=== PATIENT | female | born 1940 | race Two or more races ===

== ENCOUNTER 2016-05-13 10:06 | Inpatient (IN) | payer OTHER, BC ==
[2016-05-13 10:24] VITALS: BMI 29.7
--- NOTE | 2016-05-13 11:14 | PDOC ---
History of Present Illness <Vincent Zheng - Last Filed: 05/13/16 18:47> - General History Source: Patient, Family Exam Limitations: No Limitations - History of Present Illness Initial Comments: 05/13/16 12:41 The patient is a 76 year old female with no significant past medical history, who presents to the emergency department for further evaluation of abdominal pain for 2 weeks. The patient notes that she was recently admitted to another hospital on 04/28/16 and diagnosed with diverticulitis. The patient notes that during her admission she received a CT scan, fluids and antibiotics. On Wednesdays the patient was diagnosed with colitis secondary to antibiotics and was prescribed Flagyl. The patient reports associated spotting, back pain, and indigestion. The patient notes that she was prescribed Percocet for pain but opted to take tylenol. The patient reports one episode of vomiting 10 hours ago after taking tylenol. She denies chest pain, shortness of breath, fever, or cough. <Vincenzo Renee - Last Filed: 05/13/16 18:55> - General Chief Complaint: Pain, Acute Stated Complaint: PCP SENT FOR ABD CT Time Seen by Provider: 05/13/16 11:07 Past History - Past Medical History Anemia: No Asthma: Yes Cancer: No Cardiac Disorders: No CVA: No COPD: No CHF: No Dementia: No Diabetes: No GI Disorders: No Disorders: No HTN: Yes Hypercholesterolemia: Yes Liver Disease: No Seizures: No Thyroid Disease: Yes - Surgical History Abdominal Surgery: Yes (LAPAROSCOPY,APPENDECTOMY) Appendectomy: Yes Cardiac Surgery: No Cholecystectomy: No Lung Surgery: No Neurologic Surgery: No - Psycho/Social/Smoking Cessation Hx Suicidal Ideation: No Smoking History: Never smoked Have you smoked in the past 12 months: No Hx Alcohol Use: No (rare) Drug/Substance Use Hx: No Substance Use Type: None Hx Substance Use Treatment: No <Vincent Zheng - Last Filed: 05/13/16 18:47> <Vincenzo Renee - Last Filed: 05/13/16 18:55> - Past Medical History Allergies/Adverse Reactions: Allergies Allergy/AdvReac Type Severity Reaction Status Date / Time codeine AdvReac "NAUSEA" Verified 05/13/16 10:19 Home Medications: Ambulatory Orders Albuterol Sulfate [Proventil HFA Inhaler -] 2 inh PO TID PRN 09/17/12 Budesonide/Formeterol Fumarate [SYMBICORT 160/4.5mcg -] 2 inh IH BID 09/17/12 Levothyroxine [Synthroid -] 25 mcg PO ASDIR 09/17/12 Loratadine [Claritin -] 10 mg PO HS 09/17/12 Montelukast Na [Singulair -] 10 mg PO HS 09/17/12 Multivitamin W-Minerals/Lutein [A Thru Z High Potency Caplet] 5 tab PO DAILY 01/18 Nasacort Aq Nasal [place] - 1 spray NS PRN PRN 09/17/12 Rosuvastatin Calcium [Crestor] 5 mg PO HS 09/17/12 Aspirin Coated [Ecotrin -] 81 mg PO DAILY 09/13/13 Ibuprofen [Advil -] 400 mg PO DAILY 09/13/13 Metoprolol Succinate [Toprol XL -] 25 mg PO HS 09/13/13 Olmesartan/Amlodipin/Hcthiazid [Tribenzor 40-10-12.5 mg Tablet] 1 each PO DAILY 09/13/13 Metronidazole [Flagyl -] 500 mg PO TID 05/13/16 Review of Systems - Review of Systems Able to Perform ROS?: Yes Comments:: 05/13/16 12:41 GENERAL/CONSTITUTIONAL: No fever or chills. No weakness. HEAD, EYES, EARS, NOSE AND THROAT: No change in vision. No ear pain or discharge. No sore throat. CARDIOVASCULAR: No chest pain or shortness of breath. RESPIRATORY: No cough, wheezing, or hemoptysis. GASTROINTESTINAL: Yes abdominal pain, vomiting, indigestion. No nausea, diarrhea or constipation. GENITOURINARY: No dysuria, frequency, or change in urination. MUSCULOSKELETAL: Yes back pain No joint or muscle swelling or pain. No neck or back pain. SKIN: No rash NEUROLOGIC: No headache, vertigo, loss of consciousness, or change in strength/ sensation. ENDOCRINE: No increased thirst. No abnormal weight change. HEMATOLOGIC/LYMPHATIC: No anemia, easy bleeding, or history of blood clots. ALLERGIC/IMMUNOLOGIC: No hives or skin allergy. <Vincenzo Renee - Last Filed: 05/13/16 18:55> *Physical Exam - Vital Signs Last Vital Signs Temp Pulse Resp BP Pulse Ox 98.1 F 86 19 150/64 96 05/13/16 10:19 05/13/16 10:19 05/13/16 10:19 05/13/16 10:19 05/13/16 10:19 <Vincent Zheng - Last Filed: 05/13/16 18:47> - Vital Signs Last Vital Signs Temp Pulse Resp BP Pulse Ox 98.1 F 86 19 150/64 96 05/13/16 10:19 05/13/16 10:19 05/13/16 10:19 05/13/16 10:19 05/13/16 10:19 - Physical Exam Comments: 05/13/16 12:42 GENERAL: Awake, alert, and fully oriented, in no acute distress HEAD: No signs of trauma EYES: PERRLA, EOMI, sclera anicteric, conjunctiva clear ENT: Auricles normal inspection, hearing grossly normal, nares patent, oropharynx clear without exudates. Moist mucosa NECK: Normal ROM, supple, no lymphadenopathy, JVD, or masses LUNGS: Breath sounds equal, clear to auscultation bilaterally. No wheezes, and no crackles HEART: Regular rate and rhythm, normal S1 and S2, no murmurs, rubs or gallops ABDOMEN: Soft, nontender, normoactive bowel sounds. No guarding, no rebound. No masses EXTREMITIES: Normal range of motion, no edema. No clubbing or cyanosis. No cords, erythema, or tenderness NEUROLOGICAL: Cranial nerves II through XII grossly intact. Normal speech, normal gait SKIN: Warm, Dry, normal turgor, no rashes or lesions noted. <Vincenzo Renee - Last Filed: 05/13/16 18:55> Heart Score/ECG Review - ECG Impressions Comment:: 05/13/16 13:18 ECG Impression: Normal sinus rhythm. Septal infarct, age undetermined. Abnormal ECG. <Vincenzo Renee - Last Filed: 05/13/16 18:55> ED Treatment Course - LABORATORY CBC & Chemistry Diagram: 05/13/16 12:48 05/13/16 12:48 <Vincent Zheng - Last Filed: 05/13/16 18:47> - LABORATORY CBC & Chemistry Diagram: 05/13/16 12:48 05/13/16 12:48 - RADIOLOGY Radiograph Interpretation: 05/13/16 16:01 EXAM#: TYPE/EXAM: RESULT: [id number] US/PELVIC / BLADDER US Clinical history: 76- year-old with postmenopausal vaginal bleeding. COMPARISON: None. Transverse and longitudinal cross-sections were obtained through the pelvis utilizing transabdominal technique. The uterus was prominent in size for postmenopausal status. It measured 8.2 x 6 0.4, 9.2 by cm. An anterior myoma measured 3.7 x 3.1 cm.. The EEC measured 4 mm. No fluid was noted in the endometrial cavity or the cul-de-sac. The ovaries could not be seen. A distended loop of fluid-filled bowel was seen in the pelvis. Impression: Enlarged postmenopausal uterus with anterior myoma. Normal EEC. Ovaries not seen. Reported By: Kahlil Dorsey MD [id number] 05/13/16 17:41 EXAM#: TYPE/EXAM: RESULT: [id number] CT/ABDOMEN PELVIS CT WITH CONTR Recent diverticulitis. CT scan of the abdomen and pelvis following oral and intravenous contrast. Coronal and sagittal reformatted images were obtained 94 cc of Omnipaque 350 was intravenously injected Comparison: None available There is linear-like scarring in the included lung base, posteriorly/bilaterally. The heart is within normal limits in size. Evaluation of the liver, spleen, pancreas and both adrenal glands appear unremarkable. Status post cholecystectomy. Mild dilatation of the central intrahepatic bile ducts with a normal size: Bile duct. The stomach is moderately distended without wall thickening. Both kidneys are within normal limits in size with normal enhancement. 1.2 cm right mid renal cyst. There is also a tiny cyst in its upper pole and a small cyst in its lower pole. Questionable punctate nonobstructing stone in its lower pole measuring 1 to 2 mm on axial image 59. Subcentimeter cyst in the left renal lower pole. There is [id number]-pt-[id number] right and mild left renal hydronephrosis as well as mild to moderate right hydroureter without evidence of a ureteral stone. Urinary bladder is moderately distended with minimal intraluminal air, probably iatrogenic. There are multiple diverticula in the sigmoid colon with thickening of the mid sigmoid colon wall and stranding of the surrounding fat. There is multiloculated collections with air seen along the right lateral margin of the mid sigmoid colon draping over the uterine fundus with the largest collection measuring approximately 6 cm. The collections are extending to the upper pelvis with thickening of the adjacent small bowel loops at the junction of the distal duodenum and proximal jejunal loops. There is suggestion of a small abscess with air-fluid level inseparable from the third portion of the duodenum measuring 2.4 cm on axial image 71. There is also mild dilatation and deformity seen at the junction of the duodenal bulb and descending duodenum, cannot rule out a small ulcer. Normal size uterus with multiple small calcific densities suggestive of calcified fibroids. Perirectal fat is clear. Grade 1 anterolisthesis of L5 over S1. Moderate degenerative disc disease from L1 through S1 level. Impression: Findings consistent with diverticulitis involving the mid sigmoid colon with multiloculated adjacent abscess in the mid pelvis draping over the uterine fundus as well as extending superiorly with likely another small loculated abscess seen at the junction of the third and fourth portion of the duodenum measuring 2.4 cm. There is thickening of the third and fourth portion of the duodenum as well as the adjacent proximal jejunal loops. Questionable small duodenal ulcer in the proximal descending portion. Status post cholecystectomy. Air within the urinary bladder, likely iatrogenic. Reported By: Osmany Paez MD 05/13/16 5397 EXAM#: TYPE/EXAM: RESULT: [id number] RAD/CHEST PA LAT Abdominal pain and distention Chest x-ray PA and lateral. The cardiac silhouette is within normal limits in size. There are mild perihilar increased lung markings, bilaterally. Minimal blunting of the left costophrenic angle consistent with pleural thickening versus minimal pleural effusion. Mediastinum and visualized osseous structures appear intact with degenerative changes and anterior spondylosis in the thoracic spine. Impression: No acute cardiopulmonary disease is present. Pleural thickening versus minimal left pleural effusion. Reported By: Osmany Paez MD 05/13/16 1815 <Vincenzo Renee - Last Filed: 05/13/16 18:55> Medical Decision Making - Medical Decision Making 05/13/16 18:45 Dr. Drummond was called and case was discussed. Dr. Drummond said that he would speak with Dr. Oviedo directly. <Vincenzo Renee - Last Filed: 05/13/16 18:55> *DC/Admit/Observation/Transfer - Discharge Dispostion Admit: Yes - Attestations Physician Attestion: 05/13/16 11:13 I, Dr. Vincent Zheng, attest that this document has been prepared under my direction and personally reviewed by me in its entirety. I further attest, that it accurately reflects all work, treatment, procedures and medical decision -making performed by me. <Vincent Zheng - Last Filed: 05/13/16 18:47> - Attestations Scribe Attestion: 05/13/16 12:42 Documentation prepared by Vincenzo Renee, acting as medical billing associate for Vincent Zheng DO. <Vincenzo Renee - Last Filed: 05/13/16 18:55> Diagnosis at time of Disposition: Intra-abdominal abscess Diverticulitis Qualifiers: Diverticulitis site: large intestine Diverticulitis bleeding: without bleeding Diverticulitis complication: with abscess Qualified Code(s): K57.20 - Diverticulitis of large intestine with perforation and abscess without bleeding - Referrals Referrals: Alonso Drummond MD [Primary Care Provider] -
[2016-05-13 14:00] LABS: BASOPHIL 0.5 % (0-2.0); EOSINOPHIL 0.1 % (0-4.5); MCH 29.7 pg (25.7-33.7); MCHC 33.7 g/dl (32.0-36.0); MEAN CELL VOLUME 87.9 fl (80-96); MEAN PLT VOLUME 7.1 fl (7.5-11.1); NEUTROPHILS 83.1 % (42.8-82.8); PLATELET COUNT 851 K/MM3 (134-434); RDW 15.5 % (11.6-15.6); WHITE BLOOD COUNT 16.4 K/mm3 (4.0-10.0)
[2016-05-13 14:11] LABS: INR 1.22 (0.82-1.09); PROTHROMBIN TIME (PATIENT) 13.5 SEC (9.98-11.88)
[2016-05-13 14:39] LABS: ALBUMIN 2.6 g/dl (3.4-5.0); ANION GAP 10 (8-16); CO2 27 mmol/L (21-32); GLUCOSE,RANDOM 94 mg/dL (74-106); SGPT/ALT 23 U/L (12-78); TOT PROT 6.6 g/dl (6.4-8.2)
[2016-05-13 14:43] LABS: ALK PHOS 70 U/L (45-117); BILIRUBIN,TOTAL 0.5 mg/dL (0.2-1.0); C-REACTIVE PROTEIN 9.9 MG/DL (0.00-0.3); CREATININE 0.6 mg/dL (0.55-1.02)
[2016-05-13 14:56] LABS: BILIRUBIN,DIRECT < 0.1 mg/dL (0.0-0.2); SGOT/AST 48 U/L (15-37)
[2016-05-13 15:44] LABS: ERYTHROCYTE SEDIMENTATION RATE 50 mm/hr (0-30)
[2016-05-13 16:01] LABS: URINE APPEARANCE CLEAR; URINE BILIRUBIN NEGATIVE (NEGATIVE); URINE COLOR YELLOW; URINE GLUCOSE (UA) NEGATIVE (NEGATIVE); URINE KETONE TRACE (NEGATIVE); URINE LEUK ESTERASE NEGATIVE (NEGATIVE); URINE NITRITE NEGATIVE (NEGATIVE); URINE PROTEIN NEGATIVE (NEGATIVE); URINE UROBILINOGEN NEGATIVE E.U./dl (0.2-1.0)
[2016-05-13 16:02] LABS: URINE BLOOD 1+ (NEGATIVE); URINE MUCUS RARE; URINE RBC 5 /hpf (0-3); URINE WBC 1 /hpf (3-5)
[2016-05-13] MEDS ORDERED: VANCOMYCIN 1,000 MG in DEXTROSE 5%-WATER - 250 ML IVPB ONE (19:13)
[2016-05-13] MEDS ORDERED: VANCOMYCIN 1 GRAM (PRE-DOCKED) 250 ML IVPB ONE (19:41)
[2016-05-13] MEDS ORDERED: NASACORT AQ NS PRN (20:37)
[2016-05-13] MEDS ORDERED: PIPERACILLIN/TAZOB 3.375 GM/50 ML PRE-DOCKED IV ONE (20:39)
[2016-05-13] MEDS ORDERED: PIPERACILLIN/TAZOB 3.375 GM/50 ML PRE-DOCKED IVPB ONE (20:39)
[2016-05-13] MEDS ORDERED: ACETAMINOPHEN 1000 MG/100 ML VIAL (NON FORMULARY) IVPB PRN (20:41)
[2016-05-13] MEDS ORDERED: ROSUVASTATIN CA 5 MG TABLET (FP) PO SCH (22:00)
[2016-05-13] MEDS: LORATADINE 10 MG TABLET PO SCH (23:11)
[2016-05-13] MEDS: BUDESONIDE/FORMETEROL FUMARATE 160/4.5 mcg INHALER IH SCH (23:12)
[2016-05-13] MEDS: MONTELUKAST NA 10 MG TABLET PO SCH (23:13)
[2016-05-13] MEDS: METOPROLOL SUCCINATE 25 MG TAB.SR.24H (FP) PO SCH (23:13)
--- NOTE | 2016-05-14 09:07 | PN ---
Progress Note, Physician Chief Complaint: ID In good spirits mimimal to no pain - Current Medication List Current Medications: Active Medications Acetaminophen (Ofirmev Injection -) 1,000 mg IVPB Q6H PRN PRN Reason: FEVER OR PAIN Stop: 05/14/16 14:42 Amlodipine Besylate (Norvasc -) 10 mg PO DAILY [facility] Budesonide/Formoterol Fumarate (Symbicort 160/4.5mcg -) 2 puff IH BID [facility] Last Admin: 05/13/16 23:12 Dose: Not Given Hydrochlorothiazide (Hctz -) 12.5 mg PO DAILY [facility] Loratadine (Claritin -) 10 mg PO [facility] Last Admin: 05/13/16 23:11 Dose: Not Given Metoprolol Succinate (Toprol Xl -) 25 mg PO [facility] Last Admin: 05/13/16 23:13 Dose: 25 mg Montelukast Sodium (Singulair -) 10 mg PO [facility] Last Admin: 05/13/16 23:13 Dose: 10 mg Non-Formulary Medication (Multivitamin W-Minerals/Lutein [A Thru Z High Potency Caplet]) 5 tab PO DAILY [facility] Non-Formulary Medication (Nasacort Aq Nasal [place] -) 1 spray NS PRN PRN PRN Reason: ASTHMA Rosuvastatin Calcium (Crestor -) 5 mg PO [facility] Last Admin: 05/13/16 23:11 Dose: Not Given Valsartan (Diovan -) 320 mg PO DAILY [facility] - Objective Vital Signs: Vital Signs Temperature 98.2 F 05/14/16 06:00 Pulse Rate 82 05/14/16 06:00 Respiratory Rate 18 05/14/16 06:00 Blood Pressure 134/67 05/14/16 06:00 O2 Sat by Pulse Oximetry (%) 98 05/13/16 22:00 Constitutional: Yes: Well Nourished, No Distress Neck: Yes: WNL, Supple Cardiovascular: Yes: S1, S2 Respiratory: Yes: WNL, Regular, CTA Bilaterally Gastrointestinal: Yes: WNL, Normal Bowel Sounds, Soft. No: Tenderness, Tenderness, Rebound Edema: No Labs: INR, PTT INR 1.22 (0.82-1.09) H 05/13/16 12:48 Problem List - Problems (1) Diverticulitis Code(s): K57.92 - DVTRCLI OF INTEST, PART UNSP, W/O PERF OR ABSCESS W/O BLEED Qualifiers: Diverticulitis site: large intestine Diverticulitis bleeding: without bleeding Diverticulitis complication: with abscess Qualified Code(s): K57.20 - Diverticulitis of large intestine with perforation and abscess without bleeding (2) Intra-abdominal abscess Code(s): K65.1 - PERITONEAL ABSCESS Assessment/Plan Microbiology Laboratory Tests 05/13/16 05/13/16 12:48 12:48 WBC 16.4 H Hgb 12.1 Plt Count 851 H ESR 50 H C-Reactive Protein 9.9 H Assessment Sigmoid diverticulitis with multiple abscess Plan Zosyn with GI consult ? NACHO Barnhart MD
--- NOTE | 2016-05-14 09:34 | CONS ---
DATE OF CONSULTATION: HISTORY: This is a 76-year-old female who was admitted with a [id number]-ymcygyc of lower abdominal pain. She notes being admitted to the [facility] on May 02 where she was diagnosed with acute diverticulitis. She says that she spent a day in the emergency room and 1 other day in the hospital before being discharged on Augmentin on the 30 of April. She took the Augmentin for approximately another week noting that her abdominal pain had improved somewhat. She was seen by Dr. Drummond earlier this week and referred to the hospital for ongoing evaluation of her diverticulitis. A CT scan obtained here showed findings consistent with mid sigmoid colon diverticulitis with multiloculated adjacent abscesses in the mid pelvis. The possibility of a small duodenal ulcer was mentioned, and she had prior cholecystectomy. The patient has no fever but an elevated white count on admission of 16,000. She notes that she has jxulbzz-tn-tl abdominal pain currently. She describes some loose stools but no diarrhea. PAST MEDICAL HISTORY: Includes thyroid disease, prior appendectomy, cholecystectomy, hyperlipidemia. MEDICATIONS: Albuterol, Symbicort, Singulair, Nasacort, Crestor, Ecotrin, metoprolol, ibuprofen. ALLERGIES: CODEINE. SOCIAL HISTORY: Never smoked. No history of alcohol use. Lives locally. FAMILY HISTORY: Reviewed and noncontributory. REVIEW OF SYSTEMS: Respiratory: No cough or shortness of breath. Cardiac: No chest pain or palpitations. Gastrointestinal: Currently lggmfoo-wy-if abdominal pain. No vomiting. Some loose stools but no diarrhea, blood per rectum, or hemoptysis. Genitourinary: No dysuria or hematuria. PHYSICAL EXAMINATION: General: A pleasant, well-nourished, elderly woman in no acute distress. Vital Signs: Temperature on admission 98.1, pulse 86, blood pressure 150/64, respirations 19. Neck: Supple. No adenopathy. Lungs: Clear to P and A. Heart: S1, S2. Regular rhythm without audible murmur or gallop. Abdomen: Soft, nontender with no guarding or rebound. No palpable mass. Extremities: No clubbing, cyanosis, or edema. LABORATORY DATA: White count 16.4, hemoglobin 12.1, platelets 851, sedimentation rate 51, BUN 9, creatinine 0.6. Liver enzymes within normal limits. CRP 9.9. Urinalysis: 5 RBC, 1 WBC. ASSESSMENT: A 76-year-old female with acute diverticulitis status post brief admission at [facility] who presents now with CT findings consistent with perforated diverticulitis with multiple abscesses. Clinically she appears quite well, however, despite the leukocytosis and thrombocytosis. The latter most likely reactive on the basis of intra-abdominal abscess. We will empirically treat her with piperacillin 4.5 g q.8 hours. Await GI consultation. Consider making the patient n.p.o. at this point HERI CABRERA M.D. [id number]
[2016-05-14] MEDS: HYDROCHLOROTHIAZIDE 12.5 MG CAPSULE (FP) PO SCH (09:51)
[2016-05-14] MEDS: amLODIPine BESYLATE 10 MG TABLET (FP) PO SCH ×2 (09:51→10:10)
[2016-05-14] MEDS: VALSARTAN 160 MG TABLET (UD) PO SCH (09:51)
[2016-05-14] MEDS ORDERED: PIPERACILLIN/TAZOB 4.5 GM 4.5 GM in DEXTROSE 5%-WATER - 100 ML IVPB SCH (10:00)
--- NOTE | 2016-05-14 10:22 | HP ---
Admitting History and Physical - Primary Care Physician PCP: Alonso Drummond - Admission Chief Complaint: DIVERTICULITIS. ABSCESS History Source: Medical Record - Smoking History Smoking history: Never smoked Have you smoked in the past 12 months: No - Alcohol/Substance Use Hx Alcohol Use: No (rare) Home Medications - Allergies Allergies/Adverse Reactions: Allergies Allergy/AdvReac Type Severity Reaction Status Date / Time codeine AdvReac "NAUSEA" Verified 05/13/16 10:19 - Home Medications Home Medications: Ambulatory Orders Albuterol Sulfate [Proventil HFA Inhaler -] 2 inh PO TID PRN 09/17/12 Budesonide/Formeterol Fumarate [SYMBICORT 160/4.5mcg -] 2 inh IH BID 09/17/12 Levothyroxine [Synthroid -] 25 mcg PO ASDIR 09/17/12 Loratadine [Claritin -] 10 mg PO HS 09/17/12 Montelukast Na [Singulair -] 10 mg PO HS 09/17/12 Multivitamin W-Minerals/Lutein [A Thru Z High Potency Caplet] 5 tab PO DAILY 01/18 Nasacort Aq Nasal [place] - 1 spray NS PRN PRN 09/17/12 Rosuvastatin Calcium [Crestor] 5 mg PO HS 09/17/12 Aspirin Coated [Ecotrin -] 81 mg PO DAILY 09/13/13 Ibuprofen [Advil -] 400 mg PO DAILY 09/13/13 Metoprolol Succinate [Toprol XL -] 25 mg PO HS 09/13/13 Metronidazole [Flagyl -] 500 mg PO TID 05/13/16 Tribenzor 40-5-12.5 mg Tablet PO DAILY 05/14/16 Review of Systems - Review of Systems Constitutional: denies: Chills, Fever Cardiovascular: denies: Chest Pain Respiratory: denies: SOB Gastrointestinal: reports: Abdominal Pain (feels better) Physical Examination Vital Signs: Vital Signs Temperature 98.2 F 05/14/16 06:00 Pulse Rate 82 05/14/16 06:00 Respiratory Rate 18 05/14/16 06:00 Blood Pressure 134/67 05/14/16 06:00 O2 Sat by Pulse Oximetry (%) 98 05/13/16 22:00 Constitutional: Yes: Calm Neck: Yes: WNL Cardiovascular: Yes: WNL Respiratory: Yes: WNL Gastrointestinal: Yes: Tenderness, Tenderness, Rebound (mild) Imaging - Results Cat Scan: Report Reviewed Ultrasound: Report Reviewed Problem List - Problems (1) Diverticulitis Code(s): K57.92 - DVTRCLI OF INTEST, PART UNSP, W/O PERF OR ABSCESS W/O BLEED Qualifiers: Diverticulitis site: large intestine Diverticulitis bleeding: without bleeding Diverticulitis complication: with abscess Qualified Code(s): K57.20 - Diverticulitis of large intestine with perforation and abscess without bleeding (2) Intra-abdominal abscess Code(s): K65.1 - PERITONEAL ABSCESS (3) Enlarged uterus Code(s): N85.2 - HYPERTROPHY OF UTERUS Assessment/Plan The patient is a 76 year old female with no significant past medical history, who presents to the emergency department for further evaluation of abdominal pain for 2 weeks. The patient notes that she was recently admitted to another hospital on 04/28/16 and diagnosed with diverticulitis. The patient notes that during her admission she received a CT scan, fluids and antibiotics. On Wednesdays the patient was diagnosed with colitis secondary to antibiotics and was prescribed Flagyl. The patient reports associated spotting, back pain, and indigestion. The patient notes that she was prescribed Percocet for pain but opted to take tylenol. The patient reports one episode of vomiting 10 hours ago after taking tylenol. She denies chest pain, shortness of breath, fever, or cough. 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
--- NOTE | 2016-05-14 11:14 | CONSULT ---
- Consultation REQUESTING PROVIDER: Jasmin CONSULT REQUEST: We have been asked to surgically evaluate this patient for diverticulitis w/microperforataion and abscess PCP:Leah Castellanos HISTORY OF PRESENT ILLNESS:Patient was txed for 5 days w/ IVABS after she presented to [place] in [facility]; she was d/c'ed w/ PO antibiotics; she saw here PCP (Bhanu) earlier this week who sent her to the ER here for further evaluation and management b/o concerns of intraabdominal sequelae of her original presenting problem; she has no c/o today of n/v and or abdominal pain; she has eaten while she has been here w/incident PMHx: HTN; pulm disease PSHx: open appendectomy/lap angelica Home Medications Medication Instructions Recorded Albuterol Sulfate [Proventil HFA 2 inh PO TID PRN 09/17/12 Inhaler -] Budesonide/Formeterol Fumarate 2 inh IH BID 09/17/12 [SYMBICORT 160/4.5mcg -] Levothyroxine [Synthroid -] 25 mcg PO ASDIR 09/17/12 Loratadine [Claritin -] 10 mg PO HS 09/17/12 Montelukast Na [Singulair -] 10 mg PO HS 09/17/12 Multivitamin W-Minerals/Lutein [A 5 tab PO DAILY 09/17/12 Thru Z High Potency Caplet] Nasacort Aq Nasal [place] - 1 spray NS PRN PRN 09/17/12 Rosuvastatin Calcium [Crestor] 5 mg PO HS 09/17/12 Aspirin Coated [Ecotrin -] 81 mg PO DAILY 09/13/13 Ibuprofen [Advil -] 400 mg PO DAILY 09/13/13 Metoprolol Succinate [Toprol XL -] 25 mg PO HS 09/13/13 Metronidazole [Flagyl -] 500 mg PO TID 05/13/16 Tribenzor 40-5-12.5 mg Tablet PO DAILY 05/14/16 Allergies Allergy/AdvReac Type Severity Reaction Status Date / Time codeine AdvReac "NAUSEA" Verified 05/13/16 10:19 PHYSICAL EXAM: GENERAL: Awake, alert, and fully oriented, in no acute distress. HEAD: Normal with no signs of trauma. EYES: anicteric NECK: Normal ROM, supple without lymphadenopathy, JVD, or masses. ABDOMEN: Soft, nontender, not distended, normoactive bowel sounds, no guarding, no rebound, no masses. No organomegaly. Healed right paramedian scar and healed port sites from lap angelica; no hernias MUSCULOSKELETAL: Normal ROM at all joints. No bony deformities or tenderness. No CVA tenderness. UPPER EXTREMITIES: 2+ pulses, warm, well-perfused. No cyanosis. Cap refill <2 seconds. No peripheral edema. LOWER EXTREMITIES: 2+ pulses, warm, well-perfused. No calf tenderness. No peripheral edema. NEUROLOGICAL: Normal speech, gait not observed. PSYCH: Cooperative. Good eye contact. Appropriate mood and affect. SKIN: Warm, dry, normal turgor, no rashes or lesions noted. Vital Signs Temperature 98.2 F 05/14/16 06:00 Pulse Rate 82 05/14/16 06:00 Respiratory Rate 18 05/14/16 06:00 Blood Pressure 134/67 05/14/16 06:00 O2 Sat by Pulse Oximetry (%) 98 05/13/16 22:00 Lab Results WBC 16.4 K/mm3 (4.0-10.0) H 05/13/16 12:48 RBC 4.09 M/mm3 (3.60-5.2) 05/13/16 12:48 Hgb 12.1 GM/dL (10.7-15.3) 05/13/16 12:48 Hct 35.9 % (32.4-45.2) 05/13/16 12:48 MCV 87.9 fl (80-96) 05/13/16 12:48 MCHC 33.7 g/dl (32.0-36.0) 05/13/16 12:48 RDW 15.5 % (11.6-15.6) 05/13/16 12:48 Plt Count 851 K/MM3 (134-434) H 05/13/16 12:48 Sodium 137 mmol/L (136-145) 05/13/16 12:48 Potassium 4.7 mmol/L (3.5-5.1) 05/13/16 12:48 Chloride 100 mmol/L (98-107) 05/13/16 12:48 Carbon Dioxide 27 mmol/L (21-32) 05/13/16 12:48 Anion Gap 10 (8-16) 05/13/16 12:48 BUN 9 mg/dL (7-18) 05/13/16 12:48 Creatinine 0.6 mg/dL (0.55-1.02) 05/13/16 12:48 Random Glucose 94 mg/dL (74-106) 05/13/16 12:48 Calcium 8.0 mg/dL (8.5-10.1) L 05/13/16 12:48 Blood Type A POSITIVE 05/13/16 16:02 Antibody Screen Negative 05/13/16 16:02 INR 1.22 (0.82-1.09) H 05/13/16 12:48 CT scan a/p-reviewed IMP: diverticulitis w/microperforation and intra abdominal abscess(es) PLAN: Suggest NPO/IVABS/IVFevaluation for CT guided abscess drainage; no acute surgical intervention indicated at this time; will f/u Ricardo Angulo MD [facility] Visit type - Case Type Case Type: ED Admission - Emergency Emergency Visit: Yes ED Registration Date: 05/13/16 Care time: The patient presented to the Emergency Department on the above date and was hospitalized for further evaluation of their emergent condition. - New patient This patient is new to me today: Yes Date on this admission: 05/14/16 - Critical Care Critical Care patient: No
[2016-05-14] MEDS: BUDESONIDE/FORMETEROL FUMARATE 160/4.5 mcg INHALER IH SCH ×2 (12:42→21:10)
[2016-05-14] MEDS: DEXTROSE 5%-0.45% SALINE 1,000 ML IV SCH ×2 (12:43→19:41)
[2016-05-14] MEDS: PIPERACILLIN/TAZOB 4.5 GM 100 ML IVPB SCH ×2 (12:43→17:30)
[2016-05-14] MEDS: amLODIPine BESYLATE 5 MG TABLET (FP) PO SCH (13:09)
--- NOTE | 2016-05-14 13:17 | CON.PULM ---
Consult Consult Specialty:: PULMONARY Referred by:: AFSHIN Reason for Consultation:: PLEURAL THICKENING - History of Present Illness Chief Complaint: ABD FULLNESS History of Present Illness: The patient is a 76 year old female who presents to the emergency department for further evaluation of abdominal pain for 2 weeks. The patient notes that she was recently admitted to another hospital on 04/28/16 and diagnosed with diverticulitis. The patient notes that during her admission she received a CT scan, fluids and antibiotics. On Wednesdays the patient was diagnosed with colitis secondary to antibiotics and was prescribed Flagyl. The patient reports associated spotting, back pain, and indigestion. The patient notes that she was prescribed Percocet for pain but opted to take tylenol. The patient reports one episode of vomiting 10 hours ago after taking tylenol. She denies chest pain, shortness of breath, fever, or cough. 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 No: AFIB Pulmonary: No: Asthma, COPD, Pneumonia Gastrointestinal: Yes: Diverticulitis, Other (ABD ABSCESS). No: Ascites Hepatobiliary: No: Cirrhosis Renal/: No: Renal Failure Reproductive: Yes: Postmenopausal Heme/Onc: No: Anemia Infectious Disease: No: AIDS Psych: No: Addictions Musculoskeletal: No: Bursitis Rheumatology: No: Fibromyalgia ENT: No: Allergic Rhinitis Endocrine: Yes: Hypothyroidism. No: Diabetes Mellitus - Past Surgical History Past Surgical History: Yes: Appendectomy, Cholecystectomy - Alcohol/Substance Use Hx Alcohol Use: No (rare) - Smoking History Smoking history: Never smoked Have you smoked in the past 12 months: No Home Medications - Allergies Allergies/Adverse Reactions: Allergies Allergy/AdvReac Type Severity Reaction Status Date / Time codeine AdvReac "NAUSEA" Verified 05/13/16 10:19 - Home Medications Home Medications: Ambulatory Orders Albuterol Sulfate [Proventil HFA Inhaler -] 2 inh PO TID PRN 09/17/12 Budesonide/Formeterol Fumarate [SYMBICORT 160/4.5mcg -] 2 inh IH BID 09/17/12 Levothyroxine [Synthroid -] 25 mcg PO ASDIR 09/17/12 Loratadine [Claritin -] 10 mg PO HS 09/17/12 Montelukast Na [Singulair -] 10 mg PO HS 09/17/12 Multivitamin W-Minerals/Lutein [A Thru Z High Potency Caplet] 5 tab PO DAILY 01/18 Nasacort Aq Nasal [place] - 1 spray NS PRN PRN 09/17/12 Rosuvastatin Calcium [Crestor] 5 mg PO HS 09/17/12 Aspirin Coated [Ecotrin -] 81 mg PO DAILY 09/13/13 Ibuprofen [Advil -] 400 mg PO DAILY 09/13/13 Metoprolol Succinate [Toprol XL -] 25 mg PO HS 09/13/13 Metronidazole [Flagyl -] 500 mg PO TID 05/13/16 Tribenzor 40-5-12.5 mg Tablet PO DAILY 05/14/16 Family Disease History - Family Disease History Family History: Unremarkable Review of Systems - Review of Systems Cardiovascular: denies: Chest Pain Respiratory: denies: Cough, Exercise Intolerance, Hemoptysis, SOB, Wheezing Gastrointestinal: reports: Bloating. denies: Abdominal Pain Physical Exam Vital Sings: Vital Signs Temperature 98.3 F 05/14/16 08:00 Pulse Rate 87 05/14/16 08:00 Respiratory Rate 20 05/14/16 08:00 Blood Pressure 137/61 05/14/16 08:00 O2 Sat by Pulse Oximetry (%) 98 05/14/16 08:00 Constitutional: Yes: Calm Eyes: Yes: EOM Intact HENT: Yes: Normocephalic Neck: Yes: Trachea Midline Cardiovascular: Yes: Regular Rate and Rhythm Respiratory: Yes: CTA Bilaterally Gastrointestinal: Yes: Normal Bowel Sounds, Soft Renal/: Yes: WNL Musculoskeletal: Yes: WNL Extremities: Yes: WNL Edema: No Integumentary: Yes: WNL Neurological: Yes: Alert Psychiatric: Yes: Alert Labs: ALL REVIEWED Imaging - Results Chest X-ray: Image Reviewed Cat Scan: Image Reviewed Problem List - Problems (1) Diverticulitis Code(s): K57.92 - DVTRCLI OF INTEST, PART UNSP, W/O PERF OR ABSCESS W/O BLEED Qualifiers: Diverticulitis site: large intestine Diverticulitis bleeding: without bleeding Diverticulitis complication: with abscess Qualified Code(s): K57.20 - Diverticulitis of large intestine with perforation and abscess without bleeding (3) Intra-abdominal abscess Code(s): K65.1 - PERITONEAL ABSCESS Assessment/Plan NO EVIDENCE TO SUPPORT PLEURAL EFFUSION OR INFILTRATE BASE ON ABD CT PATIENT MAY HAVE LINEAR ATELECTASIS GIVEN HER INTRA-ABDOMINAL PATHOLOGY SUGGEST INCENTIVE SPIROMETRY THANK YOU FOR THE CONSULT Omar FORMAN MD
--- NOTE | 2016-05-14 15:10 | CON.GI ---
Consult Consult Specialty:: GI Referred by:: Dr Castellanos Reason for Consultation:: Diverticulitis - History of Present Illness Chief Complaint: Abdominal pain History of Present Illness: 76 F with fh/o HTN and asthma, states she developed LLQ pain on April 26. She went to the [facility] and was treated for a few days with IVF and IV AbRx. She states she felt better and was discharged 2-3 days later on a clear liquid diet and po Ab. She states the pain never fully resolved and she subsequently returned to the hospital and was found to have a multiloculated abscess in the sigmoid colon with the largest collection being 6 cm. 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 No: AFIB Pulmonary: No: Asthma, COPD, Pneumonia Gastrointestinal: Yes: Diverticulitis, Other (ABD ABSCESS). No: Ascites Hepatobiliary: No: Cirrhosis Renal/: No: Renal Failure Infectious Disease: No: AIDS Psych: No: Addictions Musculoskeletal: No: Bursitis Rheumatology: No: Fibromyalgia ENT: No: Allergic Rhinitis Endocrine: Yes: Hypothyroidism. No: Diabetes Mellitus - Past Surgical History Past Surgical History: Yes: Appendectomy, Cholecystectomy - Alcohol/Substance Use Hx Alcohol Use: No (rare) - Smoking History Smoking history: Never smoked Have you smoked in the past 12 months: No Home Medications - Allergies Allergies/Adverse Reactions: Allergies Allergy/AdvReac Type Severity Reaction Status Date / Time codeine AdvReac "NAUSEA" Verified 05/13/16 10:19 - Home Medications Home Medications: Ambulatory Orders Albuterol Sulfate [Proventil HFA Inhaler -] 2 inh PO TID PRN 09/17/12 Budesonide/Formeterol Fumarate [SYMBICORT 160/4.5mcg -] 2 inh IH BID 09/17/12 Levothyroxine [Synthroid -] 25 mcg PO ASDIR 09/17/12 Loratadine [Claritin -] 10 mg PO HS 09/17/12 Montelukast Na [Singulair -] 10 mg PO HS 09/17/12 Multivitamin W-Minerals/Lutein [A Thru Z High Potency Caplet] 5 tab PO DAILY 01/18 Nasacort Aq Nasal [place] - 1 spray NS PRN PRN 09/17/12 Rosuvastatin Calcium [Crestor] 5 mg PO HS 09/17/12 Aspirin Coated [Ecotrin -] 81 mg PO DAILY 09/13/13 Ibuprofen [Advil -] 400 mg PO DAILY 09/13/13 Metoprolol Succinate [Toprol XL -] 25 mg PO HS 09/13/13 Metronidazole [Flagyl -] 500 mg PO TID 05/13/16 Tribenzor 40-5-12.5 mg Tablet PO DAILY 05/14/16 Physical Exam-GI Vital Signs: Vital Signs Temperature 98.0 F 05/14/16 14:00 Pulse Rate 80 05/14/16 14:00 Respiratory Rate 18 05/14/16 14:00 Blood Pressure 137/61 05/14/16 08:00 O2 Sat by Pulse Oximetry (%) 98 05/14/16 08:00 Constitutional: Yes: Well Nourished, No Distress Eyes: Yes: WNL HENT: Yes: Normocephalic Neck: Yes: Supple Cardiovascular: Yes: Regular Rate and Rhythm Respiratory: Yes: CTA Bilaterally Gastrointestinal Inspection: Yes: WNL ...Auscultate: Yes: Normoactive Bowel Sounds ...Palpate: Yes: Soft, Tenderness (LLQ) ...Percussion: Yes: Dullness Labs: INR, PTT INR 1.22 (0.82-1.09) H 05/13/16 12:48 CBC, BMP 05/13/16 12:48 05/13/16 12:48 Hepatic Panel Total Bilirubin 0.5 mg/dL (0.2-1.0) 05/13/16 12:48 Direct Bilirubin < 0.1 mg/dL (0.0-0.2) 05/13/16 12:48 AST 48 U/L (15-37) H 05/13/16 12:48 ALT 23 U/L (12-78) 05/13/16 12:48 Alkaline Phosphatase 70 U/L (45-117) 05/13/16 12:48 Albumin 2.6 g/dl (3.4-5.0) L 05/13/16 12:48 Imaging - Results Cat Scan: Report Reviewed Assessment/Plan 76 F with above history now with complicated diverticulitis. Recommend: NPO for now IV AbRx IVF Drainage of abscess by IR-this may be difficult due to the loculated nature of the abscess Surgery on case-she may need surgical intervention once the acute inflammatory process cools down Will need colonoscopy as well, when fully healed-6-8 weeks
--- NOTE | 2016-05-14 16:27 | EKG ---
Test Reason : Blood Pressure : / mmHG Vent. Rate : 084 BPM Atrial Rate : 084 BPM P-R Int : 148 ms QRS Dur : 092 ms QT Int : 402 ms P-R-T Axes : 056 -27 024 degrees QTc Int : 475 ms NORMAL SINUS RHYTHM SEPTAL INFARCT , AGE UNDETERMINED ABNORMAL ECG WHEN COMPARED WITH ECG OF 20-OCT-2001 08:48, QRS AXIS SHIFTED LEFT SEPTAL INFARCT IS NOW PRESENT NONSPECIFIC T WAVE ABNORMALITY NOW EVIDENT IN LATERAL LEADS Confirmed by BRENDA ELLISON MD ([id number]) on 05/14/2016 4:27:05 PM Referred By: Confirmed By:BRENDA ELLISON MD
[2016-05-14] MEDS: LORATADINE 10 MG TABLET PO SCH (21:07)
[2016-05-14] MEDS: FLUTICASONE PROP 0.05% 16 GM NASAL SPRAY NS SCH (21:07)
[2016-05-14] MEDS: MONTELUKAST NA 10 MG TABLET PO SCH (21:10)
[2016-05-14] MEDS: METOPROLOL SUCCINATE 25 MG TAB.SR.24H (FP) PO SCH (21:10)
[2016-05-15] MEDS: PIPERACILLIN/TAZOB 4.5 GM 100 ML IVPB SCH ×3 (01:23→17:26)
--- NOTE | 2016-05-15 01:24 | CONSULT ---
Consult Consult Specialty:: endocrine Referred by:: Reason for Consultation:: hypothyroidism - History of Present Illness Chief Complaint: abdominal pain History of Present Illness: 76 year old female with no significant past medical history, who presents to the emergency department for further evaluation of abdominal pain for 2 weeks. The patient notes that she was recently admitted to another hospital on 04/28/16 and diagnosed with diverticulitis. The patient notes that during her admission she received a CT scan, fluids and antibiotics. On Wednesdays the patient was diagnosed with colitis secondary to antibiotics and was prescribed Flagyl. 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 No: AFIB Pulmonary: No: Asthma, COPD, Pneumonia Gastrointestinal: Yes: Diverticulitis, Other (ABD ABSCESS). No: Ascites Hepatobiliary: No: Cirrhosis Renal/: No: Renal Failure Infectious Disease: No: AIDS Psych: No: Addictions Musculoskeletal: No: Bursitis Rheumatology: No: Fibromyalgia ENT: No: Allergic Rhinitis Endocrine: Yes: Hypothyroidism. No: Diabetes Mellitus - Past Surgical History Past Surgical History: Yes: Appendectomy, Cholecystectomy - Alcohol/Substance Use Hx Alcohol Use: No (rare) - Smoking History Smoking history: Never smoked Have you smoked in the past 12 months: No Home Medications - Allergies Allergies/Adverse Reactions: Allergies Allergy/AdvReac Type Severity Reaction Status Date / Time No Known Drug Allergies Allergy Verified 05/14/16 15:54 codeine AdvReac "NAUSEA" Verified 05/14/16 15:51 - Home Medications Home Medications: Ambulatory Orders Albuterol Sulfate [Proventil HFA Inhaler -] 2 inh PO TID PRN 09/17/12 Budesonide/Formeterol Fumarate [SYMBICORT 160/4.5mcg -] 2 inh IH BID 09/17/12 Levothyroxine [Synthroid -] 25 mcg PO ASDIR 09/17/12 Loratadine [Claritin -] 10 mg PO HS 09/17/12 Montelukast Na [Singulair -] 10 mg PO HS 09/17/12 Multivitamin W-Minerals/Lutein [A Thru Z High Potency Caplet] 5 tab PO DAILY 01/18 Nasacort Aq Nasal [place] - 1 spray NS PRN PRN 09/17/12 Rosuvastatin Calcium [Crestor] 5 mg PO HS 09/17/12 Aspirin Coated [Ecotrin -] 81 mg PO DAILY 09/13/13 Ibuprofen [Advil -] 400 mg PO DAILY 09/13/13 Metoprolol Succinate [Toprol XL -] 25 mg PO HS 09/13/13 Metronidazole [Flagyl -] 500 mg PO TID 05/13/16 Tribenzor 40-5-12.5 mg Tablet PO DAILY 05/14/16 Review of Systems - Review of Systems Constitutional: reports: Weakness Eyes: reports: No Symptoms HENT: reports: No Symptoms Neck: reports: No Symptoms Cardiovascular: reports: No Symptoms Respiratory: reports: Exercise Intolerance, SOB, SOB on Exertion Gastrointestinal: reports: No Symptoms Genitourinary: reports: No Symptoms Breasts: reports: No Symptoms Reported Musculoskeletal: reports: No Symptoms Integumentary: reports: No Symptoms Neurological: reports: No Symptoms Endocrine: reports: No Symptoms Physical Exam Vital Signs: Vital Signs Temperature 98.3 F 05/14/16 21:06 Pulse Rate 76 05/14/16 21:06 Respiratory Rate 16 05/14/16 21:06 Blood Pressure 147/69 05/14/16 21:06 O2 Sat by Pulse Oximetry (%) 98 05/14/16 21:00 Constitutional: Yes: Anxious Eyes: Yes: EOM Intact HENT: Yes: Normocephalic Neck: Yes: Trachea Midline Cardiovascular: Yes: Regular Rate and Rhythm Respiratory: Yes: CTA Bilaterally Gastrointestinal: Yes: Abdomen, Obese, Distention, Tenderness, Tenderness, Epigastrium ...Rectal Exam: Yes: Deferred Renal/: Yes: WNL Breast(s): Yes: WNL Musculoskeletal: Yes: WNL Extremities: Yes: WNL Edema: No Integumentary: Yes: WNL Neurological: Yes: Alert, Oriented Problem List - Problems (1) Diverticulitis Code(s): K57.92 - DVTRCLI OF INTEST, PART UNSP, W/O PERF OR ABSCESS W/O BLEED Qualifiers: Diverticulitis site: large intestine Diverticulitis bleeding: without bleeding Diverticulitis complication: with abscess Qualified Code(s): K57.20 - Diverticulitis of large intestine with perforation and abscess without bleeding Assessment/Plan Current Active Problems Diverticulitis (Acute) Enlarged uterus (Acute) Intra-abdominal abscess (Acute) Pleural thickening (Acute) hypothyroidism rito thyroiditis Laboratory Tests 05/13/16 05/13/16 12:48 12:48 WBC 16.4 H RBC 4.09 Hgb 12.1 Hct 35.9 MCV 87.9 MCHC 33.7 RDW 15.5 Plt Count 851 H MPV 7.1 L Sodium 137 Potassium 4.7 Chloride 100 Carbon Dioxide 27 Anion Gap 10 BUN 9 Creatinine 0.6 Creat Clearance w eGFR > 60 Random Glucose 94 plan: ck tsh free t4 continue with planned iv antibiotic and surgical intervention for abdominal abscess
--- NOTE | 2016-05-15 08:46 | PN ---
Progress Note, Physician Chief Complaint: feels better ambulating - Current Medication List Current Medications: Active Medications Amlodipine Besylate (Norvasc -) 5 mg PO DAILY [facility] Last Admin: 05/14/16 13:09 Dose: 5 mg Budesonide/Formoterol Fumarate (Symbicort 160/4.5mcg -) 2 puff IH BID [facility] Last Admin: 05/14/16 21:10 Dose: 2 inh Fluticasone Propionate (Flonase -) 1 spray NS BID [facility] Last Admin: 05/14/16 21:07 Dose: Not Given Hydrochlorothiazide (Hctz -) 12.5 mg PO DAILY [facility] Last Admin: 05/14/16 09:51 Dose: 12.5 mg Piperacillin Sod/Tazobactam Sod (Zosyn 4.5gm Ivpb (Pre-Docked)) 100 mls @ 200 mls/hr IVPB Q8H-IV CLAY PRN Reason: Protocol Last Admin: 05/15/16 01:23 Dose: 200 mls/hr Dextrose/Sodium Chloride (D5-1/2ns -) 1,000 mls @ 75 mls/hr IV ASDIR [facility] Last Admin: 05/14/16 19:41 Dose: 75 mls/hr Loratadine (Claritin -) 10 mg PO HS [facility] Last Admin: 05/14/16 21:07 Dose: Not Given Metoprolol Succinate (Toprol Xl -) 25 mg PO HS [facility] Last Admin: 05/14/16 21:10 Dose: 25 mg Montelukast Sodium (Singulair -) 10 mg PO [facility] Last Admin: 05/14/16 21:10 Dose: 10 mg Non-Formulary Medication (Multivitamin W-Minerals/Lutein [A Thru Z High Potency Caplet]) 5 tab PO DAILY [facility] Valsartan (Diovan -) 320 mg PO DAILY [facility] Last Admin: 05/14/16 09:51 Dose: 320 mg - Objective Vital Signs: Vital Signs Temperature 97.9 F 05/15/16 06:00 Pulse Rate 76 05/15/16 06:00 Respiratory Rate 16 05/15/16 06:00 Blood Pressure 130/63 05/15/16 06:00 O2 Sat by Pulse Oximetry (%) 98 05/14/16 21:00 Constitutional: Yes: Calm Neck: Yes: WNL Cardiovascular: Yes: WNL Respiratory: Yes: WNL Gastrointestinal: Yes: Tenderness Edema: No Labs: INR, PTT INR 1.22 (0.82-1.09) H 05/13/16 12:48 Problem List - Problems (1) Diverticulitis Code(s): K57.92 - DVTRCLI OF INTEST, PART UNSP, W/O PERF OR ABSCESS W/O BLEED Qualifiers: Diverticulitis site: large intestine Diverticulitis bleeding: without bleeding Diverticulitis complication: with abscess Qualified Code(s): K57.20 - Diverticulitis of large intestine with perforation and abscess without bleeding (2) Intra-abdominal abscess Code(s): K65.1 - PERITONEAL ABSCESS (3) Enlarged uterus Code(s): N85.2 - HYPERTROPHY OF UTERUS Assessment/Plan The patient is a 76 year old female with no significant past medical history, who presents to the emergency department for further evaluation of abdominal pain for 2 weeks. The patient notes that she was recently admitted to another hospital on 04/28/16 and diagnosed with diverticulitis. The patient notes that during her admission she received a CT scan, fluids and antibiotics. On Wednesdays the patient was diagnosed with colitis secondary to antibiotics and was prescribed Flagyl. The patient reports associated spotting, back pain, and indigestion. The patient notes that she was prescribed Percocet for pain but opted to take tylenol. The patient reports one episode of vomiting 10 hours ago after taking tylenol. She denies chest pain, shortness of breath, fever, or cough. (1) Diverticulitis Code(s): K57.92 - DVTRCLI OF INTEST, PART UNSP, W/O PERF OR ABSCESS W/O BLEED Qualifiers: Diverticulitis site: large intestine Diverticulitis bleeding: without bleeding Diverticulitis complication: with abscess Qualified Code(s): K57.20 - Diverticulitis of large intestine with perforation and abscess without bleeding ID ON CASE GI -> OUTPT COLONOSCOPY SURG -> NO SURG INTERVENTION. NEED CT GUIDED DRAINAGE CT GUIDED DRAIN ORDERED NPO/IVF IV ABx (2) Intra-abdominal abscess Code(s): K65.1 - PERITONEAL ABSCESS (3) Enlarged uterus Code(s): N85.2 - HYPERTROPHY OF UTERUS SEEN ON [employer] [place] CONSULTED 4. PLEURAL THICKENING PULM CONSULT APPRECIATED -> NOT SEEN ON CT LUNG. SUPPORTIVE [facility] NURSE FM
[2016-05-15 08:48] LABS: BASOPHIL 0.8 % (0-2.0); EOSINOPHIL 1.5 % (0-4.5); MCH 29.4 pg (25.7-33.7); MCHC 33.5 g/dl (32.0-36.0); MEAN CELL VOLUME 87.7 fl (80-96); MEAN PLT VOLUME 6.8 fl (7.5-11.1); NEUTROPHILS 71.5 % (42.8-82.8); PLATELET COUNT 703 K/MM3 (134-434); RDW 14.9 % (11.6-15.6); WHITE BLOOD COUNT 8.2 K/mm3 (4.0-10.0)
[2016-05-15 09:04] LABS: ALBUMIN 2.4 g/dl (3.4-5.0); ANION GAP 10 (8-16); CALCIUM 7.9 mg/dL (8.5-10.1); CO2 26 mmol/L (21-32); CREATININE 0.6 mg/dL (0.55-1.02); GLUCOSE,RANDOM 121 mg/dL (74-106); SGOT/AST 18 U/L (15-37); SGPT/ALT 18 U/L (12-78)
[2016-05-15 09:07] LABS: ALK PHOS 56 U/L (45-117); BILIRUBIN,TOTAL 0.5 mg/dL (0.2-1.0)
[2016-05-15] MEDS: FLUTICASONE PROP 0.05% 16 GM NASAL SPRAY NS SCH ×2 (09:35→21:03)
[2016-05-15] MEDS: amLODIPine BESYLATE 5 MG TABLET (FP) PO SCH ×2 (09:35)
[2016-05-15] MEDS: VALSARTAN 160 MG TABLET (UD) PO SCH (09:35)
[2016-05-15] MEDS: BUDESONIDE/FORMETEROL FUMARATE 160/4.5 mcg INHALER IH SCH ×2 (09:36→21:04)
[2016-05-15] MEDS: HYDROCHLOROTHIAZIDE 12.5 MG CAPSULE (FP) PO SCH (09:36)
[2016-05-15] MEDS: DEXTROSE 5%-0.45% SALINE 1,000 ML IV SCH (09:37)
--- NOTE | 2016-05-15 13:35 | PN ---
GI Progress Note Subjective: Patient feeling well. No pain - Objective Vital Signs: Vital Signs Temperature 97.9 F 05/15/16 06:00 Pulse Rate 76 05/15/16 06:00 Respiratory Rate 16 05/15/16 06:00 Blood Pressure 130/63 05/15/16 06:00 O2 Sat by Pulse Oximetry (%) 98 05/14/16 21:00 Constitutional: Well Nourished, Obese HENT: Yes: Normocephalic Cardiovascular: Yes: Regular Rate and Rhythm Respiratory: Yes: CTA Bilaterally Gastrointestinal Inspection: Yes: WNL ...Auscultate: Yes: Normoactive Bowel Sounds ...Palpate: Yes: Soft. No: Tenderness Labs: CBC, BMP 05/15/16 08:00 05/15/16 08:00 INR, PTT INR 1.22 (0.82-1.09) H 05/13/16 12:48 Assessment/Plan 76 F with above history now with complicated diverticulitis. Recommend: NPO for now Continue IV AbRx Continue IVF Drainage of abscess by IR-this may be difficult due to the loculated nature of the abscess. Check INR Surgery on case-she may need surgical intervention once the acute inflammatory process cools down Will need colonoscopy as well, when fully healed-6-8 weeks
--- NOTE | 2016-05-15 14:34 | PN ---
Progress Note (short form) - Note Progress Note: Attending Surgeon no c/o VSS AF abdomen-soft; nontender WBC normal IMP: improving PLAN: continue present tx; concur w/a/p as outlined by GI. Ricardo Angulo MD FACS
[2016-05-15] MEDS: MULTIVITAMIN W MINERALS PO SCH (19:43)
[2016-05-15] MEDS: LUTEIN PO SCH (19:43)
[2016-05-15] MEDS: [UNRECOGNIZED DRUG - OTHER] PO SCH (19:43)
[2016-05-15] MEDS ORDERED: PT OWN MED DRAWER 7, Y5N ONE (21:02)
[2016-05-15] MEDS: LORATADINE 10 MG TABLET PO SCH (21:04)
[2016-05-15] MEDS: METOPROLOL SUCCINATE 25 MG TAB.SR.24H (FP) PO SCH (21:04)
[2016-05-15] MEDS: MONTELUKAST NA 10 MG TABLET PO SCH (21:04)
[2016-05-16] MEDS: DEXTROSE 5%-0.45% SALINE 1,000 ML IV SCH ×2 (01:14→15:09)
[2016-05-16] MEDS: PIPERACILLIN/TAZOB 4.5 GM 100 ML IVPB SCH ×3 (01:15→17:09)
[2016-05-16 07:55] LABS: INR 1.12 (0.82-1.09); PROTHROMBIN TIME (PATIENT) 12.4 SEC (9.98-11.88)
[2016-05-16 07:56] LABS: BASOPHIL 0.7 % (0-2.0); EOSINOPHIL 2.1 % (0-4.5); MCH 29.9 pg (25.7-33.7); MCHC 34.2 g/dl (32.0-36.0); MEAN CELL VOLUME 87.6 fl (80-96); MEAN PLT VOLUME 6.8 fl (7.5-11.1); NEUTROPHILS 64.7 % (42.8-82.8); PLATELET COUNT 717 K/MM3 (134-434); RDW 15.1 % (11.6-15.6)
--- NOTE | 2016-05-16 08:01 | PN ---
Progress Note, Physician History of Present Illness: FEELS BETTER LESS PAIN - Current Medication List Current Medications: Active Medications Amlodipine Besylate (Norvasc -) 5 mg PO DAILY [facility] Last Admin: 05/15/16 09:35 Dose: 5 mg Budesonide/Formoterol Fumarate (Symbicort 160/4.5mcg -) 2 puff IH BID [facility] Last Admin: 05/15/16 21:04 Dose: 2 inh Fluticasone Propionate (Flonase -) 1 spray NS BID [facility] Last Admin: 05/15/16 21:03 Dose: Not Given Hydrochlorothiazide (Hctz -) 12.5 mg PO DAILY [facility] Last Admin: 05/15/16 09:36 Dose: 12.5 mg Piperacillin Sod/Tazobactam Sod (Zosyn 4.5gm Ivpb (Pre-Docked)) 100 mls @ 200 mls/hr IVPB Q8H-IV [facility] PRN Reason: Protocol Last Admin: 05/16/16 01:15 Dose: 200 mls/hr Dextrose/Sodium Chloride (D5-1/2ns -) 1,000 mls @ 75 mls/hr IV ASDIR [facility] Last Admin: 05/16/16 01:14 Dose: 75 mls/hr Loratadine (Claritin -) 10 mg PO HS [facility] Last Admin: 05/15/16 21:04 Dose: Not Given Metoprolol Succinate (Toprol Xl -) 25 mg PO HS [facility] Last Admin: 05/15/16 21:04 Dose: 25 mg Montelukast Sodium (Singulair -) 10 mg PO HS [facility] Last Admin: 05/15/16 21:04 Dose: 10 mg Valsartan (Diovan -) 320 mg PO DAILY [facility] Last Admin: 05/15/16 09:35 Dose: 320 mg - Objective Vital Signs: Vital Signs Temperature 97.8 F 05/16/16 06:00 Pulse Rate 68 05/16/16 06:00 Respiratory Rate 16 05/16/16 06:00 Blood Pressure 121/53 05/16/16 06:00 O2 Sat by Pulse Oximetry (%) 98 05/15/16 20:15 Cardiovascular: Yes: Regular Rate and Rhythm Respiratory: Yes: Regular, CTA Bilaterally Gastrointestinal: Yes: Normal Bowel Sounds, Soft. No: Tenderness Labs: INR, PTT INR 1.22 (0.82-1.09) H 05/13/16 12:48 Problem List - Problems (1) Intra-abdominal abscess Assessment/Plan: IV ABX IR FOR DRAINAGE GI AND SURGERY ON CASE Code(s): K65.1 - PERITONEAL ABSCESS (2) Diverticulitis Assessment/Plan: ABOVE Code(s): K57.92 - DVTRCLI OF INTEST, PART UNSP, W/O PERF OR ABSCESS W/O BLEED Qualifiers: Diverticulitis site: large intestine Diverticulitis bleeding: without bleeding Diverticulitis complication: with abscess Qualified Code(s): K57.20 - Diverticulitis of large intestine with perforation and abscess without bleeding
[2016-05-16 08:14] LABS: ALBUMIN 2.5 g/dl (3.4-5.0); ALK PHOS 56 U/L (45-117); ANION GAP 11 (8-16); BILIRUBIN,TOTAL 0.4 mg/dL (0.2-1.0); CALCIUM 8.1 mg/dL (8.5-10.1); CO2 25 mmol/L (21-32); CREATININE 0.7 mg/dL (0.55-1.02); GLUCOSE,RANDOM 116 mg/dL (74-106); SGOT/AST 18 U/L (15-37); SGPT/ALT 20 U/L (12-78); THYROID STIMULATING HORMONE 1.59 uIU/ml (0.358-3.74); TOT PROT 6.4 g/dl (6.4-8.2)
--- NOTE | 2016-05-16 09:45 | PN ---
Progress Note (short form) - Note Progress Note: Attending Surgeon No c/o VSS AF abdomen-soft/nontender WBC-wnl IMP:Sigmoid diverticulitis w/ abscess formation PLAN: Continue present tx.; IR drainage today Will f/u. Ricardo Angulo MD FACS
[2016-05-16] MEDS ORDERED: PT OWN MED DRAWER 7, Y5N ONE (10:22)
[2016-05-16] MEDS: VALSARTAN 160 MG TABLET (UD) PO SCH (10:34)
[2016-05-16] MEDS: FLUTICASONE PROP 0.05% 16 GM NASAL SPRAY NS SCH ×3 (10:35→21:23)
[2016-05-16] MEDS: amLODIPine BESYLATE 5 MG TABLET (FP) PO SCH (10:35)
[2016-05-16] MEDS: HYDROCHLOROTHIAZIDE 12.5 MG CAPSULE (FP) PO SCH (10:35)
[2016-05-16] MEDS: BUDESONIDE/FORMETEROL FUMARATE 160/4.5 mcg INHALER IH SCH ×2 (10:35→21:37)
--- NOTE | 2016-05-16 13:33 | PN ---
Progress Note, Physician Chief Complaint: ID No abd pain zosyn continues - Current Medication List Current Medications: Active Medications Amlodipine Besylate (Norvasc -) 5 mg PO DAILY [facility] Last Admin: 05/16/16 10:35 Dose: 5 mg Budesonide/Formoterol Fumarate (Symbicort 160/4.5mcg -) 2 puff IH BID [facility] Last Admin: 05/16/16 10:35 Dose: 2 inh Fluticasone Propionate (Flonase -) 1 spray NS BID [facility] Last Admin: 05/16/16 10:39 Dose: Not Given Hydrochlorothiazide (Hctz -) 12.5 mg PO DAILY [facility] Last Admin: 05/16/16 10:35 Dose: 12.5 mg Piperacillin Sod/Tazobactam Sod (Zosyn 4.5gm Ivpb (Pre-Docked)) 100 mls @ 200 mls/hr IVPB Q8H-IV [facility] PRN Reason: Protocol Last Admin: 05/16/16 10:36 Dose: 200 mls/hr Dextrose/Sodium Chloride (D5-1/2ns -) 1,000 mls @ 75 mls/hr IV ASDIR [facility] Last Admin: 05/16/16 01:14 Dose: 75 mls/hr Loratadine (Claritin -) 10 mg PO HS [facility] Last Admin: 05/15/16 21:04 Dose: Not Given Metoprolol Succinate (Toprol Xl -) 25 mg PO HS [facility] Last Admin: 05/15/16 21:04 Dose: 25 mg Montelukast Sodium (Singulair -) 10 mg PO HS [facility] Last Admin: 05/15/16 21:04 Dose: 10 mg Valsartan (Diovan -) 320 mg PO DAILY [facility] Last Admin: 05/16/16 10:34 Dose: 320 mg - Objective Vital Signs: Vital Signs Temperature 98.5 F 05/16/16 09:00 Pulse Rate 74 05/16/16 09:00 Respiratory Rate 18 05/16/16 09:00 Blood Pressure 126/60 05/16/16 09:00 O2 Sat by Pulse Oximetry (%) 98 05/15/16 20:15 Gastrointestinal: Yes: WNL, Normal Bowel Sounds, Soft. No: Tenderness, Tenderness, Rebound Labs: CBC, BMP 05/16/16 06:20 05/16/16 06:20 INR, PTT INR 1.12 (0.82-1.09) 05/16/16 06:20 Problem List - Problems (1) Diverticulitis Code(s): K57.92 - DVTRCLI OF INTEST, PART UNSP, W/O PERF OR ABSCESS W/O BLEED Qualifiers: Diverticulitis site: large intestine Diverticulitis bleeding: without bleeding Diverticulitis complication: with abscess Qualified Code(s): K57.20 - Diverticulitis of large intestine with perforation and abscess without bleeding (2) Intra-abdominal abscess Code(s): K65.1 - PERITONEAL ABSCESS Assessment/Plan Microbiology 05/13/16 15:46 Urine - Urine - Catheterized Urine Culture - Final NO GROWTH OBTAINED 05/14/16 02:30 Blood - Peripheral Venous Blood Culture - Preliminary NO GROWTH OBTAINED AFTER 48 HOURS, INCUBATION TO CONTINUE FOR 3 DAYS. 05/14/16 02:30 Blood - Peripheral Venous Blood Culture - Preliminary NO GROWTH OBTAINED AFTER 48 HOURS, INCUBATION TO CONTINUE FOR 3 DAYS. Laboratory Tests 05/16/16 05/16/16 06:20 06:20 WBC 7.0 Hgb 11.8 Plt Count 717 H BUN 5 L Creatinine 0.7 Assessment Diverticulitis with abscesses Apparently unable to do IR drainage per Dr Melendez Plan Continue current antibiotics and await surgical recommendations Kindly recall as may be needed Bronwyn SO
[2016-05-16] MEDS: METRONIDAZOLE 500 MG PREMIXED 100 ML IVPB SCH (20:08)
--- NOTE | 2016-05-16 20:20 | PN ---
GI Progress Note Subjective: abdominal pain resolved, still NPO, on antibiotics, IR will not be possible because of the location of the abscess - Objective Vital Signs: Vital Signs Temperature 97.9 F 05/16/16 14:19 Pulse Rate 75 05/16/16 14:19 Respiratory Rate 18 05/16/16 09:00 Blood Pressure 121/51 05/16/16 14:19 O2 Sat by Pulse Oximetry (%) 98 05/15/16 20:15 Constitutional: Well Nourished Eyes: Yes: Conjunctiva Clear HENT: Yes: Atraumatic Neck: Yes: Supple Cardiovascular: Yes: Regular Rate and Rhythm Respiratory: Yes: CTA Bilaterally ...Palpate: Yes: Soft. No: Firm/Rigid, Guarding, Hepatomegaly, Mass, Pulsatile Mass, Splenomegaly, Tenderness Labs: CBC, BMP 05/16/16 06:20 05/16/16 06:20 INR, PTT INR 1.12 (0.82-1.09) 05/16/16 06:20 Problem List - Problems (1) Pelvic abscess Assessment/Plan: continue antibiotic repeat ct if no evidence of extension will advance diet and switch to po antibiotics which she will need to take for 4 weeks patient was made aware to follow-up Code(s): CRT8928 -
--- NOTE | 2016-05-16 20:49 | PN ---
Progress Note, Physician Chief Complaint: abdominal abscess ir procedure not possible History of Present Illness: abdominal abscess sp diverticulitis dx,treatment npo for possible surgical intervention - Current Medication List Current Medications: Active Medications Amlodipine Besylate (Norvasc -) 5 mg PO DAILY [facility] Last Admin: 05/16/16 10:35 Dose: 5 mg Budesonide/Formoterol Fumarate (Symbicort 160/4.5mcg -) 2 puff IH BID [facility] Last Admin: 05/16/16 10:35 Dose: 2 inh Fluticasone Propionate (Flonase -) 1 spray NS BID [facility] Last Admin: 05/16/16 10:39 Dose: Not Given Hydrochlorothiazide (Hctz -) 12.5 mg PO DAILY [facility] Last Admin: 05/16/16 10:35 Dose: 12.5 mg Piperacillin Sod/Tazobactam Sod (Zosyn 4.5gm Ivpb (Pre-Docked)) 100 mls @ 200 mls/hr IVPB Q8H-IV [facility] PRN Reason: Protocol Last Admin: 05/16/16 17:09 Dose: 200 mls/hr Dextrose/Sodium Chloride (D5-1/2ns -) 1,000 mls @ 75 mls/hr IV ASDIR [facility] Last Admin: 05/16/16 15:09 Dose: 75 mls/hr Metronidazole (Flagyl 500mg Premixed Ivpb -) 100 mls @ 100 mls/hr IVPB Q8H-IV [facility] Last Admin: 05/16/16 20:08 Dose: 100 mls/hr Amino Acids (Clinimix -) 1,000 mls @ 84 mls/hr IV Q12H [facility] Loratadine (Claritin -) 10 mg PO HS [facility] Last Admin: 05/15/16 21:04 Dose: Not Given Metoprolol Succinate (Toprol Xl -) 25 mg PO [facility] Last Admin: 05/15/16 21:04 Dose: 25 mg Montelukast Sodium (Singulair -) 10 mg PO HS [facility] Last Admin: 05/15/16 21:04 Dose: 10 mg Valsartan (Diovan -) 320 mg PO DAILY [facility] Last Admin: 05/16/16 10:34 Dose: 320 mg - Objective Vital Signs: Vital Signs Temperature 97.9 F 05/16/16 14:19 Pulse Rate 75 05/16/16 14:19 Respiratory Rate 18 05/16/16 09:00 Blood Pressure 121/51 05/16/16 14:19 O2 Sat by Pulse Oximetry (%) 98 05/15/16 20:15 Constitutional: Yes: No Distress Eyes: Yes: WNL HENT: Yes: WNL Neck: Yes: Thyromegaly Cardiovascular: Yes: WNL Respiratory: Yes: WNL, CTA Bilaterally Gastrointestinal: Yes: Abdomen, Obese, Distention ...Rectal Exam: Yes: Deferred Genitourinary: Yes: WNL Breast(s): Yes: WNL Musculoskeletal: Yes: WNL Extremities: Yes: WNL Labs: CBC, BMP 05/16/16 06:20 05/16/16 06:20 INR, PTT INR 1.12 (0.82-1.09) 05/16/16 06:20 Problem List - Problems (1) Diverticulitis Code(s): K57.92 - DVTRCLI OF INTEST, PART UNSP, W/O PERF OR ABSCESS W/O BLEED Qualifiers: Diverticulitis site: large intestine Diverticulitis bleeding: without bleeding Diverticulitis complication: with abscess Qualified Code(s): K57.20 - Diverticulitis of large intestine with perforation and abscess without bleeding Assessment/Plan abdominal abscess,loculated diverticulitis under therapy iv abx asthmatic stable Abnormal Lab Results 05/16/16 05/16/16 05/16/16 06:20 06:20 06:20 Plt Count 717 H MPV 6.8 L Monocytes % 10.5 H BUN 5 L Random Glucose 116 H Calcium 8.1 L Albumin 2.5 L Free T4 1.47 H Laboratory Results - last 24 hr 05/16/16 05/16/16 05/16/16 06:20 06:20 06:20 WBC 7.0 RBC 3.95 Hgb 11.8 Hct 34.6 MCV 87.6 MCHC 34.2 RDW 15.1 Plt Count 717 H MPV 6.8 L Neutrophils % 64.7 Lymphocytes % 22.0 D Monocytes % 10.5 H Eosinophils % 2.1 Basophils % 0.7 INR 1.12 Sodium 141 Potassium 4.0 Chloride 105 Carbon Dioxide 25 Anion Gap 11 BUN 5 L Creatinine 0.7 Creat Clearance w eGFR > 60 Random Glucose 116 H Calcium 8.1 L Total Bilirubin 0.4 AST 18 ALT 20 Alkaline Phosphatase 56 Total Protein 6.4 Albumin 2.5 L TSH 1.59 Free T4 05/16/16 06:20 WBC RBC Hgb Hct MCV MCHC RDW Plt Count MPV Neutrophils % Lymphocytes % Monocytes % Eosinophils % Basophils % INR Sodium Potassium Chloride Carbon Dioxide Anion Gap BUN Creatinine Creat Clearance w eGFR Random Glucose Calcium Total Bilirubin AST ALT Alkaline Phosphatase Total Protein Albumin TSH Free T4 1.47 H plan: iv antibiotic as ordered iv clinimex repeat ct abdomen surgical follow up
[2016-05-16] MEDS: MONTELUKAST NA 10 MG TABLET PO SCH (21:32)
[2016-05-16] MEDS: METOPROLOL SUCCINATE 25 MG TAB.SR.24H (FP) PO SCH (21:32)
[2016-05-16] MEDS: LORATADINE 10 MG TABLET PO SCH (21:33)
[2016-05-16] MEDS: AMINO ACIDS 4.25%/D5W 1,000 ML IV SCH (21:33)
[2016-05-17] MEDS: METRONIDAZOLE 500 MG PREMIXED 100 ML IVPB SCH ×3 (01:37→17:42)
[2016-05-17] MEDS: PIPERACILLIN/TAZOB 4.5 GM 100 ML IVPB SCH ×3 (02:56→17:42)
--- NOTE | 2016-05-17 08:16 | PN ---
Progress Note, Physician History of Present Illness: FEELS BETTER LESS PAIN - Current Medication List Current Medications: Active Medications Amlodipine Besylate (Norvasc -) 5 mg PO DAILY [facility] Last Admin: 05/16/16 10:35 Dose: 5 mg Budesonide/Formoterol Fumarate (Symbicort 160/4.5mcg -) 2 puff IH BID [facility] Last Admin: 05/16/16 21:37 Dose: 2 inh Fluticasone Propionate (Flonase -) 1 spray NS BID [facility] Last Admin: 05/16/16 21:23 Dose: Not Given Hydrochlorothiazide (Hctz -) 12.5 mg PO DAILY [facility] Last Admin: 05/16/16 10:35 Dose: 12.5 mg Piperacillin Sod/Tazobactam Sod (Zosyn 4.5gm Ivpb (Pre-Docked)) 100 mls @ 200 mls/hr IVPB Q8H-IV [facility] PRN Reason: Protocol Last Admin: 05/17/16 02:56 Dose: 200 mls/hr Dextrose/Sodium Chloride (D5-1/2ns -) 1,000 mls @ 75 mls/hr IV ASDIR [facility] Last Admin: 05/16/16 15:09 Dose: 75 mls/hr Metronidazole (Flagyl 500mg Premixed Ivpb -) 100 mls @ 100 mls/hr IVPB Q8H-IV [facility] Last Admin: 05/17/16 01:37 Dose: 100 mls/hr Amino Acids (Clinimix -) 1,000 mls @ 84 mls/hr IV Q12H [facility] Last Admin: 05/16/16 21:33 Dose: 84 mls/hr Loratadine (Claritin -) 10 mg PO HS [facility] Last Admin: 05/16/16 21:33 Dose: 10 mg Metoprolol Succinate (Toprol Xl -) 25 mg PO HS [facility] Last Admin: 05/16/16 21:32 Dose: 25 mg Montelukast Sodium (Singulair -) 10 mg PO HS [facility] Last Admin: 05/16/16 21:32 Dose: 10 mg Valsartan (Diovan -) 320 mg PO DAILY [facility] Last Admin: 05/16/16 10:34 Dose: 320 mg - Objective Vital Signs: Vital Signs Temperature 98.5 F 05/17/16 06:00 Pulse Rate 89 05/17/16 06:00 Respiratory Rate 20 05/17/16 06:00 Blood Pressure 138/69 05/17/16 06:00 O2 Sat by Pulse Oximetry (%) 98 05/16/16 21:00 Cardiovascular: Yes: Regular Rate and Rhythm Respiratory: Yes: Regular, CTA Bilaterally Gastrointestinal: Yes: Normal Bowel Sounds, Soft Labs: CBC, BMP 05/16/16 06:20 05/16/16 06:20 INR, PTT INR 1.12 (0.82-1.09) 05/16/16 06:20 Problem List - Problems (1) Intra-abdominal abscess Assessment/Plan: IV ABX IR FOR DRAINAGE--UNABLE TO DO TOO DEEP SURGICAL FOLLOW UP GI AND SURGERY ON CASE Code(s): K65.1 - PERITONEAL ABSCESS (2) Diverticulitis Assessment/Plan: ABOVE Code(s): K57.92 - DVTRCLI OF INTEST, PART UNSP, W/O PERF OR ABSCESS W/O BLEED Qualifiers: Diverticulitis site: large intestine Diverticulitis bleeding: without bleeding Diverticulitis complication: with abscess Qualified Code(s): K57.20 - Diverticulitis of large intestine with perforation and abscess without bleeding (3) HTN (hypertension) Assessment/Plan: SAME MEDS Code(s): I10 - ESSENTIAL (PRIMARY) HYPERTENSION (4) COPD (chronic obstructive pulmonary disease) Assessment/Plan: SYMBICORT Code(s): J44.9 - CHRONIC OBSTRUCTIVE PULMONARY DISEASE, UNSPECIFIED
[2016-05-17] MEDS ORDERED: PT OWN MED DRAWER 7, Y5N ONE (09:32)
[2016-05-17] MEDS: FLUTICASONE PROP 0.05% 16 GM NASAL SPRAY NS SCH ×2 (09:38→21:50)
[2016-05-17] MEDS: HYDROCHLOROTHIAZIDE 12.5 MG CAPSULE (FP) PO SCH (09:38)
[2016-05-17] MEDS: amLODIPine BESYLATE 5 MG TABLET (FP) PO SCH (09:38)
[2016-05-17] MEDS: VALSARTAN 160 MG TABLET (UD) PO SCH (09:38)
[2016-05-17] MEDS: BUDESONIDE/FORMETEROL FUMARATE 160/4.5 mcg INHALER IH SCH ×2 (09:39→21:54)
[2016-05-17] MEDS: AMINO ACIDS 4.25%/D5W 1,000 ML IV SCH ×3 (09:39→21:54)
--- NOTE | 2016-05-17 10:02 | PN ---
Progress Note (short form) - Note Progress Note: Surgery-Dr. Angulo Patient seen and examined. Patient states she is feeling better and is not having any pain. IR was not able to complete drainage yesterday due to location of abscess. Patient reports loose BM yesterday. She is urinating without issue. Denies fever, chills, nausea, vomiting. Last Vital Signs Temp Pulse Resp BP Pulse Ox 98.5 F 89 20 138/69 98 05/17/16 06:00 05/17/16 06:00 05/17/16 06:00 05/17/16 06:00 05/16/16 21:00 CBC, BMP 05/16/16 06:20 05/16/16 06:20 Exam: Gen: NAD, pleasant and cooperative Abd: soft, distended, nontender LE: soft, without tenderness Problem List - Problems (1) Diverticulitis Assessment/Plan: Sigmoid diverticulitis w/ abscess formation Continue abx CT today Clear liquid diet Discussed with Dr. Angulo and agrees Code(s): K57.92 - DVTRCLI OF INTEST, PART UNSP, W/O PERF OR ABSCESS W/O BLEED Qualifiers: Diverticulitis site: large intestine Diverticulitis bleeding: without bleeding Diverticulitis complication: with abscess Qualified Code(s): K57.20 - Diverticulitis of large intestine with perforation and abscess without bleeding
[2016-05-17 10:32] LABS: BASOPHIL 1.4 % (0-2.0); MCH 29.4 pg (25.7-33.7); MCHC 33.4 g/dl (32.0-36.0); MEAN CELL VOLUME 88.1 fl (80-96); MEAN PLT VOLUME 6.5 fl (7.5-11.1); NEUTROPHILS 60.8 % (42.8-82.8); PLATELET COUNT 727 K/MM3 (134-434); RDW 15.3 % (11.6-15.6); WHITE BLOOD COUNT 7.1 K/mm3 (4.0-10.0)
[2016-05-17 10:58] LABS: ALBUMIN 2.9 g/dl (3.4-5.0); ANION GAP 9 (8-16); C-REACTIVE PROTEIN 1.4 MG/DL (0.00-0.3); CALCIUM 8.7 mg/dL (8.5-10.1); CO2 27 mmol/L (21-32); CREATININE 0.7 mg/dL (0.55-1.02); GLUCOSE,RANDOM 100 mg/dL (74-106); SGOT/AST 21 U/L (15-37); SGPT/ALT 21 U/L (12-78); TOT PROT 7.1 g/dl (6.4-8.2)
[2016-05-17 10:59] LABS: ALK PHOS 62 U/L (45-117); BILIRUBIN,TOTAL 0.5 mg/dL (0.2-1.0)
[2016-05-17] MEDS: DEXTROSE 5%-0.45% SALINE 1,000 ML IV SCH (11:15)
--- NOTE | 2016-05-17 16:36 | PN ---
Progress Note (short form) - Note Progress Note: no abdominal pain feels well Vital Signs Period Temp Pulse Resp BP Sys/Ortiz Pulse Ox Last 24 Hr 98.0 F-98.6 F 74-96 16-20 116-138/62-80 98-98 cor-rrr lungs clear abd soft,nt ext no edema CBC, BMP 05/17/16 10:15 05/17/16 10:15 Laboratory Tests 05/13/16 05/13/16 05/17/16 12:48 12:48 10:15 ESR 50 H C-Reactive Protein 9.9 H 1.4 H D 05/17/16 10:15 ESR 40 H C-Reactive Protein Microbiology 05/14/16 02:30 Blood - Peripheral Venous Blood Culture - Preliminary NO GROWTH OBTAINED AFTER 72 HOURS, INCUBATION TO CONTINUE FOR 2 DAYS. 05/14/16 02:30 Blood - Peripheral Venous Blood Culture - Preliminary NO GROWTH OBTAINED AFTER 72 HOURS, INCUBATION TO CONTINUE FOR 2 DAYS. 05/13/16 15:46 Urine - Urine - Catheterized Urine Culture - Final NO GROWTH OBTAINED ct scan results noted a/p diverticulitis with intra-abdominal abscesses- improving surgery f/u of ct scan findings, ?ir drainage continue zosyn/flagyl
--- NOTE | 2016-05-17 19:29 | PN ---
GI Progress Note Subjective: the catscan has a larger collection in the third portion of the duodenum but patient is clinically asymptomatic,no fever, tolerating clear liquids - Objective Vital Signs: Vital Signs Temperature 98.3 F 05/17/16 15:45 Pulse Rate 79 05/17/16 15:45 Respiratory Rate 20 05/17/16 08:00 Blood Pressure 116/62 05/17/16 15:45 O2 Sat by Pulse Oximetry (%) 98 05/17/16 08:00 Constitutional: Well Nourished HENT: Yes: Atraumatic Neck: Yes: Supple Cardiovascular: Yes: Regular Rate and Rhythm Respiratory: Yes: CTA Bilaterally ...Palpate: Yes: Soft. No: Firm/Rigid, Guarding, Hepatomegaly, Mass, Pulsatile Mass, Splenomegaly, Tenderness, Tenderness, Epigastium Labs: CBC, BMP 05/17/16 10:15 05/17/16 10:15 INR, PTT INR 1.12 (0.82-1.09) 05/16/16 06:20 Problem List - Problems (1) Intra-abdominal abscess Assessment/Plan: unclear etiology, patient does not behave as patient with an intrabdomihnal abscess, as patient is asymptomatic and afebrile R> UGIS to r/o duodenal neoplasm, if negative will advance diet continue antibiotic Code(s): K65.1 - PERITONEAL ABSCESS
[2016-05-17] MEDS: MONTELUKAST NA 10 MG TABLET PO SCH (21:55)
[2016-05-17] MEDS: METOPROLOL SUCCINATE 25 MG TAB.SR.24H (FP) PO SCH (21:55)
[2016-05-17] MEDS: LORATADINE 10 MG TABLET PO SCH (21:55)
[2016-05-18] MEDS: METRONIDAZOLE 500 MG PREMIXED 100 ML IVPB SCH ×3 (01:13→17:24)
[2016-05-18] MEDS: PIPERACILLIN/TAZOB 4.5 GM 100 ML IVPB SCH ×3 (02:20→17:24)
[2016-05-18 09:10] LABS: BASOPHIL 1.2 % (0-2.0); EOSINOPHIL 3.8 % (0-4.5); MCH 29.5 pg (25.7-33.7); MCHC 33.4 g/dl (32.0-36.0); MEAN CELL VOLUME 88.3 fl (80-96); MEAN PLT VOLUME 6.7 fl (7.5-11.1); NEUTROPHILS 59.4 % (42.8-82.8); PLATELET COUNT 640 K/MM3 (134-434); RDW 15.3 % (11.6-15.6); WHITE BLOOD COUNT 6.1 K/mm3 (4.0-10.0)
[2016-05-18 09:34] LABS: ALBUMIN 2.8 g/dl (3.4-5.0); ANION GAP 10 (8-16); CALCIUM 8.8 mg/dL (8.5-10.1); CO2 25 mmol/L (21-32); GLUCOSE,RANDOM 112 mg/dL (74-106); SGPT/ALT 18 U/L (12-78)
[2016-05-18 09:37] LABS: ALK PHOS 50 U/L (45-117); BILIRUBIN,TOTAL 0.5 mg/dL (0.2-1.0); CREATININE 0.7 mg/dL (0.55-1.02); SGOT/AST 17 U/L (15-37); TOT PROT 6.6 g/dl (6.4-8.2)
[2016-05-18] MEDS: AMINO ACIDS 4.25%/D5W 1,000 ML IV SCH ×3 (09:59→21:08)
--- NOTE | 2016-05-18 09:59 | PN ---
Progress Note, Physician History of Present Illness: FEELS BETTER LESS PAIN - Current Medication List Current Medications: Active Medications Amlodipine Besylate (Norvasc -) 5 mg PO DAILY [facility] Last Admin: 05/17/16 09:38 Dose: 5 mg Budesonide/Formoterol Fumarate (Symbicort 160/4.5mcg -) 2 puff IH BID [facility] Last Admin: 05/17/16 21:54 Dose: 1 inh Fluticasone Propionate (Flonase -) 1 spray NS BID [facility] Last Admin: 05/17/16 21:50 Dose: Not Given Hydrochlorothiazide (Hctz -) 12.5 mg PO DAILY [facility] Last Admin: 05/17/16 09:38 Dose: 12.5 mg Piperacillin Sod/Tazobactam Sod (Zosyn 4.5gm Ivpb (Pre-Docked)) 100 mls @ 200 mls/hr IVPB Q8H-IV [facility] PRN Reason: Protocol Last Admin: 05/18/16 02:20 Dose: 200 mls/hr Dextrose/Sodium Chloride (D5-1/2ns -) 1,000 mls @ 75 mls/hr IV ASDIR [facility] Last Admin: 05/17/16 11:15 Dose: Not Given Metronidazole (Flagyl 500mg Premixed Ivpb -) 100 mls @ 100 mls/hr IVPB Q8H-IV [facility] Last Admin: 05/18/16 01:13 Dose: 100 mls/hr Amino Acids (Clinimix -) 1,000 mls @ 84 mls/hr IV Q12H [facility] Last Admin: 05/17/16 21:54 Dose: 84 mls/hr Loratadine (Claritin -) 10 mg PO HS [facility] Last Admin: 05/17/16 21:55 Dose: 10 mg Metoprolol Succinate (Toprol Xl -) 25 mg PO HS [facility] Last Admin: 05/17/16 21:55 Dose: 25 mg Montelukast Sodium (Singulair -) 10 mg PO HS [facility] Last Admin: 05/17/16 21:55 Dose: 10 mg Valsartan (Diovan -) 320 mg PO DAILY [facility] Last Admin: 05/17/16 09:38 Dose: 320 mg - Objective Vital Signs: Vital Signs Temperature 98.6 F 05/18/16 06:00 Pulse Rate 81 05/18/16 06:00 Respiratory Rate 20 05/18/16 06:00 Blood Pressure 135/59 05/18/16 06:00 O2 Sat by Pulse Oximetry (%) 98 05/17/16 22:00 Cardiovascular: Yes: Regular Rate and Rhythm Respiratory: Yes: Regular, CTA Bilaterally Gastrointestinal: Yes: Normal Bowel Sounds, Soft, Tenderness (less) Labs: CBC, BMP 05/18/16 08:25 05/18/16 08:25 INR, PTT INR 1.12 (0.82-1.09) 05/16/16 06:20 Problem List - Problems (1) Intra-abdominal abscess Assessment/Plan: 2 COLLECTIONS--ONE BY DUODENUM APPEARS LARGER ON CT--SURGICAL F/U--D/W PA IV ABX IR FOR DRAINAGE--UNABLE TO DO TOO DEEP SURGICAL FOLLOW UP GI AND SURGERY ON CASE Code(s): K65.1 - PERITONEAL ABSCESS (2) Diverticulitis Assessment/Plan: ABOVE Code(s): K57.92 - DVTRCLI OF INTEST, PART UNSP, W/O PERF OR ABSCESS W/O BLEED Qualifiers: Diverticulitis site: large intestine Diverticulitis bleeding: without bleeding Diverticulitis complication: with abscess Qualified Code(s): K57.20 - Diverticulitis of large intestine with perforation and abscess without bleeding (3) HTN (hypertension) Assessment/Plan: SAME MEDS Code(s): I10 - ESSENTIAL (PRIMARY) HYPERTENSION (4) COPD (chronic obstructive pulmonary disease) Assessment/Plan: SYMBICORT Code(s): J44.9 - CHRONIC OBSTRUCTIVE PULMONARY DISEASE, UNSPECIFIED
[2016-05-18] MEDS: DEXTROSE 5%-0.45% SALINE 1,000 ML IV SCH (10:43)
[2016-05-18] MEDS: VALSARTAN 160 MG TABLET (UD) PO SCH (10:49)
[2016-05-18] MEDS: amLODIPine BESYLATE 5 MG TABLET (FP) PO SCH (10:50)
[2016-05-18] MEDS: HYDROCHLOROTHIAZIDE 12.5 MG CAPSULE (FP) PO SCH (10:50)
[2016-05-18] MEDS: BUDESONIDE/FORMETEROL FUMARATE 160/4.5 mcg INHALER IH SCH ×2 (10:50→21:07)
[2016-05-18] MEDS: FLUTICASONE PROP 0.05% 16 GM NASAL SPRAY NS SCH ×3 (10:50→21:10)
--- NOTE | 2016-05-18 14:18 | PN ---
Progress Note (short form) - Note Progress Note: Attending Surgeon no c/o VSS AF abdomen soft/NT WBC-nl UGIS/CT reviewed IMP: diverticulitis PLAN: Continue IVABS;resume diet; origin of increased collection questionable; given clinical stabbility continue present tx.as collection not drainable. Ricardo Angulo MD FACS
--- NOTE | 2016-05-18 18:16 | PN ---
GI Progress Note Subjective: no abdominal pain, UGIS--spastic duodenum - Objective Vital Signs: Vital Signs Temperature 98.2 F 05/18/16 10:25 Pulse Rate 74 05/18/16 10:25 Respiratory Rate 18 05/18/16 10:25 Blood Pressure 126/61 05/18/16 10:25 O2 Sat by Pulse Oximetry (%) 98 05/17/16 22:00 ...Palpate: Yes: Soft. No: Firm/Rigid, Guarding, Hepatomegaly, Mass, Pulsatile Mass, Splenomegaly, Tenderness, Tenderness, Epigastium Labs: CBC, BMP 05/18/16 08:25 05/18/16 08:25 INR, PTT INR 1.12 (0.82-1.09) 05/16/16 06:20 Problem List - Problems (1) Intra-abdominal abscess Assessment/Plan: --resolving R> advance diet to low residue diet Code(s): K65.1 - PERITONEAL ABSCESS
[2016-05-18] MEDS ORDERED: PT OWN MED DRAWER 7, Y5N ONE (20:55)
[2016-05-18] MEDS: METOPROLOL SUCCINATE 25 MG TAB.SR.24H (FP) PO SCH (21:07)
[2016-05-18] MEDS: MONTELUKAST NA 10 MG TABLET PO SCH (21:07)
[2016-05-18] MEDS: LORATADINE 10 MG TABLET PO SCH (21:07)
[2016-05-19] MEDS: PIPERACILLIN/TAZOB 4.5 GM 100 ML IVPB SCH ×3 (01:15→17:53)
[2016-05-19] MEDS: METRONIDAZOLE 500 MG PREMIXED 100 ML IVPB SCH ×3 (01:55→17:16)
[2016-05-19] MEDS: AMINO ACIDS 4.25%/D5W 1,000 ML IV SCH ×2 (06:56→11:01)
[2016-05-19] MEDS: DEXTROSE 5%-0.45% SALINE 1,000 ML IV SCH (10:52)
[2016-05-19] MEDS: VALSARTAN 160 MG TABLET (UD) PO SCH (11:00)
[2016-05-19] MEDS: FLUTICASONE PROP 0.05% 16 GM NASAL SPRAY NS SCH ×2 (11:01→21:39)
[2016-05-19] MEDS: HYDROCHLOROTHIAZIDE 12.5 MG CAPSULE (FP) PO SCH (11:01)
[2016-05-19] MEDS: amLODIPine BESYLATE 5 MG TABLET (FP) PO SCH (11:01)
[2016-05-19] MEDS ORDERED: PT OWN MED DRAWER 7, Y5N ONE ×2 (11:04→21:38)
[2016-05-19] MEDS: BUDESONIDE/FORMETEROL FUMARATE 160/4.5 mcg INHALER IH SCH ×2 (11:05→21:39)
--- NOTE | 2016-05-19 11:10 | PN ---
Progress Note, Physician Chief Complaint: ID Wants to eat No fever normal WBC - Current Medication List Current Medications: Active Medications Amlodipine Besylate (Norvasc -) 5 mg PO DAILY [facility] Last Admin: 05/18/16 10:50 Dose: 5 mg Budesonide/Formoterol Fumarate (Symbicort 160/4.5mcg -) 2 puff IH BID [facility] Last Admin: 05/18/16 21:07 Dose: 2 inh Fluticasone Propionate (Flonase -) 1 spray NS BID [facility] Last Admin: 05/18/16 21:10 Dose: Not Given Hydrochlorothiazide (Hctz -) 12.5 mg PO DAILY [facility] Last Admin: 05/18/16 10:50 Dose: 12.5 mg Piperacillin Sod/Tazobactam Sod (Zosyn 4.5gm Ivpb (Pre-Docked)) 100 mls @ 200 mls/hr IVPB Q8H-IV [facility] PRN Reason: Protocol Last Admin: 05/19/16 01:15 Dose: 200 mls/hr Dextrose/Sodium Chloride (D5-1/2ns -) 1,000 mls @ 75 mls/hr IV ASDIR [facility] Last Admin: 05/18/16 10:43 Dose: Not Given Metronidazole (Flagyl 500mg Premixed Ivpb -) 100 mls @ 100 mls/hr IVPB Q8H-IV [facility] Last Admin: 05/19/16 01:55 Dose: 100 mls/hr Amino Acids (Clinimix -) 1,000 mls @ 84 mls/hr IV Q12H [facility] Last Admin: 05/19/16 06:56 Dose: 84 mls/hr Loratadine (Claritin -) 10 mg PO HS [facility] Last Admin: 05/18/16 21:07 Dose: 10 mg Metoprolol Succinate (Toprol Xl -) 25 mg PO HS [facility] Last Admin: 05/18/16 21:07 Dose: 25 mg Montelukast Sodium (Singulair -) 10 mg PO HS [facility] Last Admin: 05/18/16 21:07 Dose: 10 mg Valsartan (Diovan -) 320 mg PO DAILY [facility] Last Admin: 05/18/16 10:49 Dose: 320 mg - Objective Vital Signs: Vital Signs Temperature 98.0 F 05/19/16 06:00 Pulse Rate 74 05/19/16 06:00 Respiratory Rate 20 04/13/17 06:00 Blood Pressure 127/61 05/19/16 06:00 O2 Sat by Pulse Oximetry (%) 98 05/17/16 22:00 Constitutional: Yes: Well Nourished, No Distress Cardiovascular: Yes: Regular Rate and Rhythm, S1, S2 Respiratory: Yes: WNL, Regular, CTA Bilaterally Gastrointestinal: Yes: WNL, Normal Bowel Sounds, Soft. No: Tenderness Labs: CBC, BMP 05/18/16 08:25 05/18/16 08:25 INR, PTT INR 1.12 (0.82-1.09) 05/16/16 06:20 Problem List - Problems (1) Diverticulitis Code(s): K57.92 - DVTRCLI OF INTEST, PART UNSP, W/O PERF OR ABSCESS W/O BLEED Qualifiers: Diverticulitis site: large intestine Diverticulitis bleeding: without bleeding Diverticulitis complication: with abscess Qualified Code(s): K57.20 - Diverticulitis of large intestine with perforation and abscess without bleeding (2) Intra-abdominal abscess Code(s): K65.1 - PERITONEAL ABSCESS Assessment/Plan Laboratory Tests 05/17/16 05/18/16 05/18/16 10:15 08:25 08:25 WBC 6.1 Hgb 12.2 Plt Count 640 H ESR 40 H BUN 12 Creatinine 0.7 Creat Clearance w eGFR > 60 Assessment Diverticulitis with abscess Zosyn Plan Can be switched to Augmentin today or tomorrow [facility]
--- NOTE | 2016-05-19 11:58 | PN ---
Progress Note, Physician Chief Complaint: wants to eat complaining of loose stools no fever no wbc - Current Medication List Current Medications: Active Medications Amlodipine Besylate (Norvasc -) 5 mg PO DAILY [facility] Last Admin: 05/19/16 11:01 Dose: 5 mg Amoxicillin/Clavulanate Potassium (Augmentin - 875mg Tablet) 1 tab PO BIDWM [facility] Stop: 05/22/16 17:31 Budesonide/Formoterol Fumarate (Symbicort 160/4.5mcg -) 2 puff IH BID [facility] Last Admin: 05/19/16 11:05 Dose: 2 inh Fluticasone Propionate (Flonase -) 1 spray NS BID [facility] Last Admin: 05/19/16 11:01 Dose: Not Given Hydrochlorothiazide (Hctz -) 12.5 mg PO DAILY [facility] Last Admin: 05/19/16 11:01 Dose: 12.5 mg Piperacillin Sod/Tazobactam Sod (Zosyn 4.5gm Ivpb (Pre-Docked)) 100 mls @ 200 mls/hr IVPB Q8H-IV [facility] PRN Reason: Protocol Stop: 05/19/16 18:30 Last Admin: 05/19/16 11:02 Dose: 200 mls/hr Dextrose/Sodium Chloride (D5-1/2ns -) 1,000 mls @ 75 mls/hr IV ASDIR [facility] Last Admin: 05/19/16 10:52 Dose: Not Given Metronidazole (Flagyl 500mg Premixed Ivpb -) 100 mls @ 100 mls/hr IVPB Q8H-IV [facility] Stop: 05/19/16 18:30 Last Admin: 05/19/16 11:01 Dose: 100 mls/hr Amino Acids (Clinimix -) 1,000 mls @ 84 mls/hr IV Q12H [facility] Last Admin: 05/19/16 11:01 Dose: Not Given Loratadine (Claritin -) 10 mg PO [facility] Last Admin: 05/18/16 21:07 Dose: 10 mg Metoprolol Succinate (Toprol Xl -) 25 mg PO HS [facility] Last Admin: 05/18/16 21:07 Dose: 25 mg Montelukast Sodium (Singulair -) 10 mg PO HS [facility] Last Admin: 05/18/16 21:07 Dose: 10 mg Valsartan (Diovan -) 320 mg PO DAILY [facility] Last Admin: 05/19/16 11:00 Dose: 320 mg - Objective Vital Signs: Vital Signs Temperature 98.0 F 05/19/16 06:00 Pulse Rate 74 05/19/16 06:00 Respiratory Rate 20 05/19/16 06:00 Blood Pressure 127/61 05/19/16 06:00 O2 Sat by Pulse Oximetry (%) 98 05/17/16 22:00 Constitutional: Yes: Calm Cardiovascular: Yes: Regular Rate and Rhythm, S1, S2 Respiratory: Yes: CTA Bilaterally Gastrointestinal: Yes: Normal Bowel Sounds, Soft Edema: No Neurological: Yes: Alert, Oriented Labs: CBC, BMP 05/18/16 08:25 05/18/16 08:25 INR, PTT INR 1.12 (0.82-1.09) 05/16/16 06:20 Problem List - Problems (1) Diverticulitis Assessment/Plan: zosyn today change to augmentin tommrow advance to low residue diet check stool for c diff Code(s): K57.92 - DVTRCLI OF INTEST, PART UNSP, W/O PERF OR ABSCESS W/O BLEED Qualifiers: Diverticulitis site: large intestine Diverticulitis bleeding: without bleeding Diverticulitis complication: with abscess Qualified Code(s): K57.20 - Diverticulitis of large intestine with perforation and abscess without bleeding (2) HTN (hypertension) Assessment/Plan: continue same meds Code(s): I10 - ESSENTIAL (PRIMARY) HYPERTENSION (3) Diarrhea Assessment/Plan: check for c diff Code(s): R19.7 - DIARRHEA, UNSPECIFIED
[2016-05-19] MEDS: MONTELUKAST NA 10 MG TABLET PO SCH (21:39)
[2016-05-19] MEDS: LORATADINE 10 MG TABLET PO SCH (21:39)
[2016-05-19] MEDS: METOPROLOL SUCCINATE 25 MG TAB.SR.24H (FP) PO SCH (21:39)
[2016-05-20] MEDS: AMOX TR/POT CLAV 875MG/125MG TABLETS (FP) PO SCH ×2 (08:24→17:56)
--- NOTE | 2016-05-20 08:41 | PN ---
Progress Note (short form) - Note Progress Note: Surgery- Dr. Angulo Patient seen and examined. Patient states she is feeling well, denies pain. She is tolerating her diet without nausea or vomiting. Denies fever/chills. Last Vital Signs Temp Pulse Resp BP Pulse Ox 98.1 F 76 18 120/62 97 05/20/16 05:30 05/20/16 05:30 05/20/16 05:30 05/20/16 05:30 05/19/16 20:29 CBC, BMP 05/18/16 08:25 05/18/16 08:25 Exam: Gen: NASD, pleasant and cooperative Abd: soft, nondistended, nontender Problem List - Problems (1) Diverticulitis Assessment/Plan: Patient tolerating diet, VSS, WBC wnl, Abd nontender Continue current tx Continue regular diet Continue abx per ID Code(s): K57.92 - DVTRCLI OF INTEST, PART UNSP, W/O PERF OR ABSCESS W/O BLEED Qualifiers: Diverticulitis site: large intestine Diverticulitis bleeding: without bleeding Diverticulitis complication: with abscess Qualified Code(s): K57.20 - Diverticulitis of large intestine with perforation and abscess without bleeding
[2016-05-20 09:17] LABS: BASOPHIL 1.2 % (0-2.0); EOSINOPHIL 3.2 % (0-4.5); MCH 29.6 pg (25.7-33.7); MCHC 33.6 g/dl (32.0-36.0); MEAN CELL VOLUME 87.9 fl (80-96); NEUTROPHILS 61.6 % (42.8-82.8); PLATELET COUNT 558 K/MM3 (134-434); RDW 15.3 % (11.6-15.6); WHITE BLOOD COUNT 6.5 K/mm3 (4.0-10.0)
[2016-05-20] MEDS: BUDESONIDE/FORMETEROL FUMARATE 160/4.5 mcg INHALER IH SCH (09:17)
[2016-05-20] MEDS: amLODIPine BESYLATE 5 MG TABLET (FP) PO SCH (09:19)
[2016-05-20] MEDS: FLUTICASONE PROP 0.05% 16 GM NASAL SPRAY NS SCH (09:19)
[2016-05-20] MEDS: VALSARTAN 160 MG TABLET (UD) PO SCH (09:19)
[2016-05-20] MEDS: HYDROCHLOROTHIAZIDE 12.5 MG CAPSULE (FP) PO SCH (09:19)
[2016-05-20 09:49] LABS: ALBUMIN 3.1 g/dl (3.4-5.0); ANION GAP 8 (8-16); CALCIUM 8.6 mg/dL (8.5-10.1); CO2 27 mmol/L (21-32); CREATININE 0.6 mg/dL (0.55-1.02); GLUCOSE,RANDOM 105 mg/dL (74-106); SGOT/AST 16 U/L (15-37); SGPT/ALT 16 U/L (12-78)
[2016-05-20 09:52] LABS: ALK PHOS 52 U/L (45-117); BILIRUBIN,TOTAL 0.4 mg/dL (0.2-1.0); TOT PROT 7.2 g/dl (6.4-8.2)
--- NOTE | 2016-05-20 09:55 | DS ---
Physical Examination Vital Signs: Vital Signs Temperature 98.1 F 05/20/16 05:30 Pulse Rate 76 05/20/16 05:30 Respiratory Rate 18 05/20/16 05:30 Blood Pressure 120/62 05/20/16 05:30 O2 Sat by Pulse Oximetry (%) 97 05/19/16 20:29 Findings/Remarks: FEELS BETTER NO CP OR SOB Cardiovascular: Yes: Regular Rate and Rhythm Respiratory: Yes: Regular, CTA Bilaterally Gastrointestinal: Yes: Normal Bowel Sounds, Soft. No: Tenderness Labs: CBC, BMP 05/20/16 07:45 05/20/16 07:45 Discharge Summary Reason For Visit: DIVERTICULITIS OF INTESTINE,ABD ABSCESS Current Active Problems COPD (chronic obstructive pulmonary disease) (Acute) Diarrhea (Acute) Diverticulitis (Acute) Enlarged uterus (Acute) HTN (hypertension) (Acute) Intra-abdominal abscess (Acute) Pelvic abscess (Acute) Pleural thickening (Acute) Hospital Course: The patient is a 76 year old female who presents to the emergency department for further evaluation of abdominal pain for 2 weeks. The patient notes that she was recently admitted to another hospital on 04/28/16 and diagnosed with diverticulitis. The patient notes that during her admission she received a CT scan, fluids and antibiotics. On Wednesdays the patient was diagnosed with colitis secondary to antibiotics and was prescribed Flagyl. The patient reports associated spotting, back pain, and indigestion. The patient notes that she was prescribed Percocet for pain but opted to take tylenol. The patient reports one episode of vomiting 10 hours ago after taking tylenol. She denies chest pain, shortness of breath, fever, or cough. - History Source History Provided By: Patient, Medical Record Limitations to Obtaining History: No Limitations - Past Medical History STYLE ADVISOR: No: Alzheimer's Cardio/Vascular: Yes: HTN. No: AFIB Pulmonary: No: Asthma, COPD, Pneumonia Gastrointestinal: Yes: Diverticulitis, Other (ABD ABSCESS). No: Ascites Hepatobiliary: No: Cirrhosis Renal/: No: Renal Failure Reproductive: Yes: Postmenopausal Heme/Onc: No: Anemia Infectious Disease: No: AIDS Psych: No: Addictions Musculoskeletal: No: Bursitis Rheumatology: No: Fibromyalgia ENT: No: Allergic Rhinitis Endocrine: Yes: Hypothyroidism. No: Diabetes Mellitus - Past Surgical History Past Surgical History: Yes: Appendectomy, Cholecystectomy - Problems (1) Intra-abdominal abscess Assessment/Plan: 2 COLLECTIONS--ONE BY DUODENUM APPEARS LARGER ON CT--SURGICAL F/U NOTED--NO INTERVENTION--GI SERIES NO ULCER PT REPONDING TO TREATMENT--DC HOME ON ABX--OUTPATIENT CT SCAN IV ABX--ON PO IR FOR DRAINAGE--UNABLE TO DO TOO DEEP SURGICAL FOLLOW UP NOTED GI AND SURGERY ON CASE Code(s): K65.1 - PERITONEAL ABSCESS (2) Diverticulitis Assessment/Plan: ABOVE Code(s): K57.92 - DVTRCLI OF INTEST, PART UNSP, W/O PERF OR ABSCESS W/O BLEED Qualifiers: Diverticulitis site: large intestine Diverticulitis bleeding: without bleeding Diverticulitis complication: with abscess Qualified Code(s): K57.20 - Diverticulitis of large intestine with perforation and abscess without bleeding (3) HTN (hypertension) Assessment/Plan: SAME MEDS Code(s): I10 - ESSENTIAL (PRIMARY) HYPERTENSION (4) COPD (chronic obstructive pulmonary disease) Assessment/Plan: SYMBICORT Code(s): J44.9 - CHRONIC OBSTRUCTIVE PULMONARY DISEASE, UNSPECIFIED Condition: Improved - Instructions Referrals: Alonso Drummond MD [Primary Care Provider] - 1 Week Disposition: VNS/HOME HEALTH CARE - Home Medications Comprehensive Discharge Medication List: Ambulatory Orders Albuterol Sulfate [Proventil HFA Inhaler -] 2 inh PO TID PRN 09/17/12 Budesonide/Formeterol Fumarate [SYMBICORT 160/4.5mcg -] 2 inh IH BID 09/17/12 Levothyroxine [Synthroid -] 25 mcg PO ASDIR 09/17/12 Loratadine [Claritin -] 10 mg PO HS 09/17/12 Montelukast Na [Singulair -] 10 mg PO HS 09/17/12 Nasacort Aq Nasal [place] - 1 spray NS PRN PRN 09/17/12 Rosuvastatin Calcium [Crestor] 5 mg PO HS 09/17/12 Aspirin Coated [Ecotrin -] 81 mg PO DAILY 09/13/13 Metoprolol Succinate [Toprol XL -] 25 mg PO HS 09/13/13 Tribenzor 40-5-12.5 mg Tablet PO DAILY 05/14/16 Amlodipine Besylate [Norvasc -] 5 mg PO DAILY #30 tablet 05/20/16 Amox-Tr/K Cl [Augmentin 875-125mg Tablet -] 1 tab PO BIDWM #14 tablet 05/20/16
[2016-05-20] MEDS ORDERED: PT OWN MED DRAWER 7, Y5N ONE ×2 (12:03→18:28)
--- NOTE | 2016-05-20 14:25 | PN ---
Progress Note (short form) - Note Progress Note: feels better no complaint tolerating diet will need outpatient follow up gi to see and ct in follow up exam sp COPD (chronic obstructive pulmonary disease) (Acute) Diarrhea (Acute) Diverticulitis (Acute) Enlarged uterus (Acute) HTN (hypertension) (Acute) Intra-abdominal abscess (Acute) Pelvic abscess (Acute) Pleural thickening (Acute) Laboratory Results - last 24 hr 05/20/16 05/20/16 07:45 07:45 WBC 6.5 RBC 4.31 Hgb 12.8 Hct 37.9 MCV 87.9 MCHC 33.6 RDW 15.3 Plt Count 558 H MPV 7.0 L Neutrophils % 61.6 Lymphocytes % 24.0 Monocytes % 10.0 Eosinophils % 3.2 Basophils % 1.2 Sodium 139 Potassium 4.1 Chloride 104 Carbon Dioxide 27 Anion Gap 8 BUN 11 Creatinine 0.6 Creat Clearance w eGFR > 60 Random Glucose 105 Calcium 8.6 Total Bilirubin 0.4 AST 16 ALT 16 Alkaline Phosphatase 52 Total Protein 7.2 Albumin 3.1 L plan: discharge clinically stable to follow up on po antibiotics, ct as outpatient Problem List - Problems (1) Diverticulitis Code(s): K57.92 - DVTRCLI OF INTEST, PART UNSP, W/O PERF OR ABSCESS W/O BLEED Qualifiers: Diverticulitis site: large intestine Diverticulitis bleeding: without bleeding Diverticulitis complication: with abscess Qualified Code(s): K57.20 - Diverticulitis of large intestine with perforation and abscess without bleeding
[2016-05-20 14:57] VITALS: BP 122/53; PULSE 81; TEMP 98.2
== END 2016-05-20 18:40 | disposition home health service (06) | DRG 392 ==
LOC: JER 10:06 → JERBED 18:51 → J6S 22:15
PROVIDERS: ADMIT Family Medicine; ATTEND Family Medicine
PROC: BD15YZZ Fluoroscopy of Upper GI using Other Contrast (ICD-10-PCS; principal; 2016-05-18)
DX: K57.20 Diverticulitis of large intestine with perforation and abscess without bleeding (principal); N85.2 Hypertrophy of uterus; J44.9 Chronic obstructive pulmonary disease, unspecified; R19.7 Diarrhea, unspecified; E78.5 Hyperlipidemia, unspecified; J92.9 Pleural plaque without asbestos; E03.9 Hypothyroidism, unspecified; E06.3 Autoimmune thyroiditis; E66.9 Obesity, unspecified; Z68.29 Body mass index [BMI] 29.0-29.9, adult; I10 Essential (primary) hypertension
CPT/HCPCS: 36415; 71020-TC; 74176-TC; 74177-TC; 74240-TC; 76856-TC; 80053; 81003; 81015; 82248; 83690; 84439; 84443; 85025; 85610; 85651; 86140; 86850; 86900; 86901; 87040; 87086; 93005; 93010; 97116-GP; 97161-GP; 99284-25; 99285-25

== ENCOUNTER 2024-05-02 01:51 | Inpatient (IN) | payer OTHER, BC ==
[2024-05-02] MEDS: ACETAMINOPHEN 1000 MG/100 ML BAG IVPB ONE (02:40)
[2024-05-02] MEDS: SODIUM CHLORIDE 0.9% 500 ML INFUS.BAG IV ONE (02:40)
[2024-05-02] MEDS ORDERED: ACETAMINOPHEN 325 MG TABLET (FP) ONE (02:42)
[2024-05-02] MEDS: ACETAMINOPHEN 500 MG TABLET (FP) PO ONE (02:47)
[2024-05-02 05:01] LABS: ABSOLUTE IMMATURE GRANULOCYTES 0.03 x10^3/uL (0.0-0.031); BASOPHILS # 0.08 x10^3/uL (0.01-0.08); EOSINOPHIL % 2.6 % (0.7-5.8); EOSINOPHILS # 0.25 x10^3/uL (0.04-0.36); HEMOGLOBIN 12.9 g/dL (11.2-15.7); MCHC 32.3 g/dl (32.2-35.5); MEAN CELL VOLUME 91.7 fl (79.4-94.8); MONOCYTE # 0.96 x10^3/uL (0.24-0.86); PLATELET COUNT 270 x10^3/uL (182-369); RDW 13.2 % (12.5-17.0)
[2024-05-02 05:09] LABS: INR 1.01 (0.83-1.09); PROTHROMBIN TIME (PATIENT) 11.1 SEC (9.7-13.0)
[2024-05-02 05:12] LABS: ACTIVATED PTT 26.7 SECONDS (25.2-36.5)
[2024-05-02 05:36] LABS: CALCIUM 8.9 mg/dL (8.5-10.1)
[2024-05-02 05:37] LABS: ALBUMIN 3.6 g/dl (3.4-5.0); BLOOD UREA NITROGEN 16.2 mg/dL (7-18)
[2024-05-02 05:40] LABS: CREATININE 0.9 mg/dL (0.55-1.3)
[2024-05-02 05:42] LABS: BILIRUBIN,TOTAL 0.6 mg/dL (0.2-1); TOT PROT 6.6 g/dl (6.4-8.2)
[2024-05-02] MEDS ORDERED: HEPARIN NA (PORCINE) 5,000 UNITS/ML 1ML VIAL SQ SCH (10:00)
[2024-05-02 10:42] VITALS: BMI 27.1
[2024-05-02] MEDS: LEVOTHYROXINE NA 25 MCG TABLET (FP) PO ONE (10:57)
[2024-05-02] MEDS: FLUTICASONE PROP 0.05% 16 GM NASAL SPRAY NS SCH (11:05)
[2024-05-02] MEDS: BUDESONIDE/FORMETEROL FUMARATE 160/4.5 mcg INHALER IH SCH (11:05)
[2024-05-02] MEDS: ASPIRIN COATED 81 MG TABLET.EC PO SCH (11:07)
[2024-05-02] MEDS: PANTOPRAZOLE 40 MG TABLET PO SCH (11:07)
[2024-05-02] MEDS: HEPARIN NA (PORCINE) 5,000 UNITS/ML 1ML VIAL SQ SCH (13:46)
[2024-05-02] MEDS: MONTELUKAST NA 10 MG TABLET PO SCH (21:16)
[2024-05-02] MEDS: LORATADINE 10 MG TABLET PO SCH (21:16)
[2024-05-02] MEDS: ROSUVASTATIN CA 20 MG TABLET PO SCH (21:16)
[2024-05-02] MEDS: ACETAMINOPHEN 325 MG TABLET (FP) PO PRN (22:19)
[2024-05-03] MEDS: LEVOTHYROXINE NA 25 MCG TABLET (FP) PO SCH (06:14)
[2024-05-04] MEDS: MUPIROCIN 2% TOPICAL OINTMENT 22 GM TUBE TP SCH (12:15)
[2024-05-07] MEDS ORDERED: POLYETHYLENE GLYCOL (HEALTHYLAX) 3350 17 GM PACKET PO SCH (11:00)
[2024-05-07] MEDS: POLYETHYLENE GLYCOL (HEALTHYLAX) 3350 17 GM PACKET PO SCH (12:47)
[2024-05-07] MEDS: BISACODYL 10 MG SUPP.RECT PR ONE (12:47)
[2024-05-07] MEDS: DOCUSATE SODIUM 100 MG CAPSULE (FP) PO SCH (14:04)
[2024-05-07] MEDS: MINERAL OIL ENEMA 133 ML ENEMA RC ONE (14:48)
[2024-05-08 08:57] VITALS: BP 133/66; PULSE 68; RESP 16; TEMP 98.9
== END 2024-05-08 13:35 | DRG 551 ==
LOC: JER 01:51 → JERBED 06:45 → J6S 08:50
PROVIDERS: ADMIT Internal Medicine; ATTEND Internal Medicine
DX: S12.000A Unspecified displaced fracture of first cervical vertebra, initial encounter for closed fracture (principal); R53.2 Functional quadriplegia; S22.089A Unspecified fracture of T11-T12 vertebra, initial encounter for closed fracture; G95.20 Unspecified cord compression; R55 Syncope and collapse; F03.90 Unspecified dementia, unspecified severity, without behavioral disturbance, psychotic disturbance, mood disturbance, and anxiety; E03.9 Hypothyroidism, unspecified; J44.9 Chronic obstructive pulmonary disease, unspecified; E78.5 Hyperlipidemia, unspecified; I10 Essential (primary) hypertension; W19.XXXA Unspecified fall, initial encounter; Y93.89 Activity, other specified; Y92.89 Other specified places as the place of occurrence of the external cause; Y99.9 Unspecified external cause status
CPT/HCPCS: 36415; 70450-TC; 70496-TC; 70498-TC; 71045-TC-FY; 72040-TC; 72125-TC; 72128-TC; 72131-TC; 72141-TC; 72146-TC; 72148-TC; 72170-TC-FY; 73110-TC-RT-FY; 73130-TC-RT-FY; 80053; 85025; 85610; 85730; 86850; 86900; 86901; 93005; 93010; 97116-GP; 97163-GP; 99285-25; J1644; Q9967

== ENCOUNTER 2024-05-08 20:24 | Inpatient (IN) | payer OTHER, BC ==
[2024-05-08] MEDS ORDERED: ASPIRIN COATED 81 MG TABLET.EC ONE (21:21)
[2024-05-08] MEDS: ASPIRIN COATED 81 MG TABLET.EC PO SCH (21:45)
[2024-05-08] MEDS: MONTELUKAST NA 10 MG TABLET PO SCH (23:25)
[2024-05-08] MEDS: ROSUVASTATIN CA 5 MG TABLET PO SCH (23:25)
[2024-05-08] MEDS: HEPARIN NA (PORCINE) 5,000 UNITS/ML 1ML VIAL SQ SCH (23:25)
[2024-05-08] MEDS: LORATADINE 10 MG TABLET PO SCH (23:25)
[2024-05-08] MEDS: metoPROLOL SUCCINATE 25 MG TAB.SR.24H (FP) PO SCH (23:26)
[2024-05-09 00:10] VITALS: BMI 26.6
[2024-05-09] MEDS: BUDESONIDE/FORMETEROL FUMARATE 160/4.5 mcg INHALER IH SCH ×2 (04:04→11:15)
[2024-05-09] MEDS: ACETAMINOPHEN 325 MG TABLET (FP) PO PRN (06:34)
[2024-05-09] MEDS: LEVOTHYROXINE NA 25 MCG TABLET (FP) PO SCH (06:35)
[2024-05-09] MEDS: PANTOPRAZOLE 40 MG TABLET PO SCH (10:43)
[2024-05-09] MEDS: LIDOCAINE 5% TOPICAL PATCH TP SCH (12:22)
[2024-05-09] MEDS: LIDOCAINE PATCH REMOVAL MC SCH (21:10)
[2024-05-10] MEDS: POLYETHYLENE GLYCOL (HEALTHYLAX) 3350 17 GM PACKET PO SCH (14:02)
[2024-05-10] MEDS: DOCUSATE SODIUM 100 MG CAPSULE (FP) PO SCH (14:02)
[2024-05-10] MEDS: MINERAL OIL ENEMA 133 ML ENEMA RC ONE (14:03)
[2024-05-10] MEDS: BISACODYL 10 MG SUPP.RECT PR ONE (14:04)
[2024-05-11] MEDS: LEVOTHYROXINE NA 25 MCG TABLET (FP) PO SCH (06:21)
[2024-05-11 08:15] VITALS: RESP 18
[2024-05-11 13:48] VITALS: BP 110/89; PULSE 80; TEMP 98.6
== END 2024-05-11 16:48 | DRG 552 ==
LOC: JER 20:24 → JERBED 20:54 → OBSVTOIN 21:05 → J8W 23:10
PROVIDERS: ADMIT Internal Medicine; ATTEND Internal Medicine
DX: S12.000A Unspecified displaced fracture of first cervical vertebra, initial encounter for closed fracture (principal); J44.9 Chronic obstructive pulmonary disease, unspecified; F03.90 Unspecified dementia, unspecified severity, without behavioral disturbance, psychotic disturbance, mood disturbance, and anxiety; I10 Essential (primary) hypertension; E03.9 Hypothyroidism, unspecified; E78.5 Hyperlipidemia, unspecified; M62.81 Muscle weakness (generalized); W19.XXXA Unspecified fall, initial encounter; Y93.9 Activity, unspecified; Y92.89 Other specified places as the place of occurrence of the external cause; Y99.9 Unspecified external cause status
CPT/HCPCS: 97116-GP; 97162-GP; 99285-25; G0378; J1644